=== PATIENT | female | born 1970 | race Caucasian/White ===

== ENCOUNTER → 2019-02-28 | Outpatient (CLI) | payer OTHER ==
[~2019-02-28] MED LIST: AMBIEN CR12.5 MG PO; BACLOFEN 10MG T10 MG PO; CORLANOR5 MG PO; CRESTOR40 MG PO; CYMBALTA60 MG PO; ESTRACE1 MG PO; LYRICA300 MG PO; NORCO 7.5-3251 EACH PO; OMEPRAZOLE40 MG PO; TRAZODONE 150150 M1 PO
--- NOTE | 2019-03-08 09:09 | PAINCON ---
[address] [address] PAIN MANAGEMENT CONSULTATION Name: CAMRON ALMAGUERN Room: [facility] EARL WalterMayra.#: [id number] Admission: 02/28/19 Attend Phys: Maddison Smith MD Discharge: Date of : 72 Report #: [id number] THIS REPORT FOR: //name// CC: Jamie Smith DATE OF SERVICE: 02/28/2019 CHIEF COMPLAINT: Chronic back pain. HISTORY: The patient is a 48-year-old female who has been referred to the pain clinic for evaluation. The patient states that she is having pain that radiates down into her right leg. Occasionally, this involves her left leg. She has had pain and discomfort for a number of years. She has occasional numbness and tingling which radiates down into both legs. She had been followed by a physician in [place] a number of years ago for years. Her insurance has changed, and she would like to be treated at [facility]. The patient has a history of fibromyalgia. Pain is worse when she sits for too long. Prolonged standing as well as pain while lying in bed without making adjustments to her back can be problematic. Notes the pain improves with use of ice and stretching. She describes it as intermittent and sharp. Rates it as a 7/10 at this point. She has undergone epidural steroid injections in the past. She has undergone physical therapy as well as chiropractic treatment in the past. She has not had an MRI. The patient does have a bladder stimulator in place. ALLERGIES: CEPHALEXIN, MOUTH THRUSH; LEVOFLOXACIN, HIVES; PENICILLIN, ORAL THRUSH; AND PINDOLOL. PAST MEDICAL HISTORY: Tachycardia; history of cardiac ablation; fibromyalgia; chronic low back pain, treated with epidurals and opioids; emotional problems; asthma; bladder stimulator. PAST SURGICAL HISTORY: Total knee in 2014, hysterectomy in 2013, left breast biopsy, tonsils and adenoids, and gastric sleeve in 2014. 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 She is working at this juncture. REVIEW OF SYSTEMS: Generally good health, wears glasses, palpitations, shortness of breath, asthma, joint pain, muscle weakness, muscle pain, cramping, back pain, difficulty walking, lightheadedness, dizziness, nervousness, depression, insomnia, and easy bruising. LABORATORY DATA: No new laboratory values [place] [address] PAIN MANAGEMENT CONSULTATION Name: NIKKI ALMAGUER Room: [facility]#: [id number] Admission: 02/28/19 Attend Phys: Maddison Smith MD Discharge: Date of : 72 Report #: [id number] interview. PAIN CLINIC ASSESSMENT AND PQRS: 1. History of osteoarthritis. The patient has had a knee replacement. 2. Height 5 feet 4 inches, weight 244 pounds, and BMI 41.1. 3. Vital signs: Blood pressure 149/81, heart rate 55, respiratory rate 16, and room air saturation is 93%. 4. Temperature 98.1. 5. Pain intensity 10. 6. Fall history: The patient has not fallen in the last 3 months. 7. Blood thinner: The patient is not on a blood thinning medication. 8. Hypertension: The patient is not being treated for hypertension. 9. Opioid therapy greater than 6 weeks. The patient has been receiving opioid medication for chronic pain for a number of years. 10. Risk assessment tool: Mild for opioid use. 11. Functional assessment tool. 12. Recreational drug use. The patient denies. 13. Tobacco: The patient denies. 14. Alcohol: The patient denies frequent use of alcoholic beverages. She does have a family member who is an alcoholic. PHYSICAL EXAMINATION: GENERAL: The patient is a well-developed and well-nourished white female. Appears her stated age. She is alert and oriented x 3. Her affect is appropriate. Speech is fluent. HEENT: Normocephalic and atraumatic. Extraocular eye muscles intact. Sclerae nonicteric. Mucous membranes are moist. NECK: Without adenopathy or JVD. HEART: Regular rate. No problems with tachycardia today. ABDOMEN: Nontender. LUNGS: Clear to auscultation without rhonchi or rales. EXTREMITIES: Upper extremity muscle strength judged to be 5/5 for the major muscle groups in the upper extremity. Deep tendon reflexes are +1 at the biceps bilaterally. Lower extremity: The patient has pain and discomfort in the L5-S1 sciatic outflow tract involving the right leg. RECOMMENDATIONS: We discussed treatment options with the patient. Risks and benefits of an epidural steroid injection have been discussed. At this juncture, the patient would like to continue with her current opioid medications. She is aware that opioid medications can be problematic. She states that she has been taking the medication for a number of years without problems. We discussed the problems with opioids and that they can become less effective over time because of dependence or development of tolerance. Some patients can develop dependence on these medications and show signs of addiction. The patient is not showing signs of addiction. She feels that the medications continue to be helpful. They enable her [place] [address] PAIN MANAGEMENT CONSULTATION Name: NIKKI ALMAGUER Room: [facility]#: [id number] Admission: 02/28/19 Attend Phys: Maddison Smith MD Discharge: Date of : 72 Report #: [id number] We will continue with her current medical regimen of hydrocodone. A script for medication has been provided. She will call us if she has any concerns. We would like to thank you for letting us participate in her care. We hope she continues to improve. She will continue with hydrocodone 7.5 mg 1 p.o. b.i.d. We would like to thank you for letting us participate in her care. We hope she continues to improve. <ELECTRONICALLY SIGNED> By: Maddison Smith MD 03/08/1909 [address] Lazarus Smith MD /nt
== END ==
LOC: M.PC 12:10
DX: M54.5 Low back pain (principal); Z79.899 Other long term (current) drug therapy

== ENCOUNTER → 2019-03-30 | Outpatient (CLI) | payer OTHER ==
--- NOTE | 2019-04-03 19:22 | PAINCON ---
[address] [address] PAIN MANAGEMENT CONSULTATION Name: CAMRON ALMAGUERN Room: [facility] EARL WalterMayra.#: [id number] Admission: 03/30/19 Attend Phys: Maddison Smith MD Discharge: Date of : 72 Report #: [id number] THIS REPORT FOR: //name// CC: Jamie Smith DATE OF SERVICE: 03/30/2019 CHIEF COMPLAINT: Continued low back pain. HISTORY: The patient is a 48-year-old female who has been seen in the Pain Clinic. She has a history of chronic pain involving her low back area. She has had pain that radiates down into her low back area. States that she has had pain in the lumbar area. She also is having pain and discomfort in her foot. She suffers from plantar fasciitis. She also suffers from fibromyalgia. Has had surgery on her right knee. Still has pain and discomfort in the knee area. States that there are some problems behind the patella. She is going to follow up with her orthopedic surgeon in that regard. She finds that Lyrica continues to be helpful with the fibromyalgia. She has pain and rates it as a 7/10 at this juncture. Notes that the weather has changed, it is about 30 degrees outside. Notes that she has noticed worsening of her pain, particularly with walking, sitting, standing, going from a sitting to a standing position. She does try to stretch and finds her medications are beneficial. She notes that the hydrocodone is helpful, but not as helpful as it has been in the past. She returned today for evaluation and treatment. ALLERGIES: CEPHALEXIN -- MOUTH THRUSH, LEVOFLOXACIN - HIVES. PENICILLIN -- ORAL THRUSH. PINDOLOL. PAIN CLINIC ASSESSMENT AND PQRS: 1. History of osteoarthritis. The patient has had a right knee replacement. 2. Height 5 feet 4 inches, weight 244 pounds, BMI is 41. 3. Vital signs: Blood pressure 142/84, heart rate 75, respiratory rate 16, room air saturation 97%. 4. Pain intensity is 7/10. 5. Fall history: The patient has not fallen in the last 3 months. 6. Blood thinner. The patient is not on a blood-thinning medication. 7. Hypertension. The patient is not being treated for hypertension. 8. Opioids greater than 6 weeks. The patient receives her medications from the Pain Clinic at this juncture. 9. Risk assessment tool, low for opioid use. 10. Functional assessment tool, reviewed. 11. Recreational drug use: The patient denies. 12. Tobacco: The patient denies. 13. Alcohol. The patient denies frequent use [place] [address] PAIN MANAGEMENT CONSULTATION Name: CAMRON ALMAGUERN Room: [facility]#: [id number] Admission: 03/30/19 Attend Phys: Maddison Smith MD Discharge: Date of : 72 Report #: [id number] have family members who are alcoholic. PHYSICAL EXAMINATION: GENERAL: The patient is a well-developed, well-nourished white female. Appears her stated age. She is alert and oriented x 3. Her affect is appropriate. Speech is fluent. She is accompanied by her mom. HEENT: Normocephalic, atraumatic. Extraocular eye muscles intact. Sclerae nonicteric. Mucous membranes are moist. NECK: Without adenopathy or JVD. HEART: Regular rate. ABDOMEN: Nontender. Bowel sounds present. LUNGS: Clear to auscultation without rhonchi or rales. EXTREMITIES: Upper extremity muscle strength judged to be 5/5 for the major muscle groups in the upper extremity. The patient has pain and discomfort in the lower portion of her back with pain that radiates down into the lumbar area and buttocks area. She has some discomfort in the area of the right sciatic outflow tract. RECOMMENDATIONS: We discussed treatment options with the patient. We had a discussion regarding the treatment for fibromyalgia. We explained to the patient that fibromyalgia is a very difficult problem. The treatment that has been most efficacious over the years is physical therapy with exercise 3 times a week to about 45 minutes with sweating. The patient has been having some pain and discomfort in her feet because of plantar fasciitis. This too is a very difficult entity to contain. We would recommend that the patient wear shoes, which are supportive. The patient should wear shoes even while at home and not walk barefoot. We will continue with her Lyrica 200 mg 1 p.o. t.i.d. We will also continue with her hydrocodone. A script for her medication has been written. She will continue with hydrocodone 7.5 mg 1 p.o. b.i.d. The patient will call us if she has any concerns. We would like to thank you for letting us participate in her care. She is aware that opioid medications can be problematic. A 70,000 people last year as a result of overdosing. The patient keeps her medications in a guarded area. We would like to thank you for letting us participate in her care. We hope she continues to improve. <ELECTRONICALLY SIGNED> By: Maddison Smith MD 04/03/19 1922 [id number]. MD fernando King
== END ==
LOC: M.PC 05:14
DX: M54.5 Low back pain (principal); Z79.899 Other long term (current) drug therapy; Z88.8 Allergy status to other drugs, medicaments and biological substances

== ENCOUNTER → 2019-04-27 | Outpatient (CLI) | payer OTHER ==
[~2019-04-27] MED LIST changes: +MEDROLDOSEPACK PO
--- NOTE | 2019-05-03 13:30 | PAINCON ---
[facility] [address] [place] [address] PAIN MANAGEMENT CONSULTATION Name: ROSINACAMRONN Room: [facility] BRANDONCarole Livingston.#: [id number] Admission: 04/27/19 Attend Phys: Maddison Smith MD Discharge: Date of : 71 Report #: [id number] THIS REPORT FOR: //name// CC: Jamie Smith DATE OF SERVICE: 04/27/2019 CHIEF COMPLAINT: Low back pain and heel pain. HISTORY: The patient is a 48-year-old female who has been referred to the pain clinic. She does have some problems with right knee pain. She has some pain and discomfort under her kneecap. States that she is going to see her orthopedic doctor in the near future because of this. She has had a knee replacement. The right knee still is somewhat problematic because of irritation under the kneecap area. She also has pain, which is quite problematic that is secondary to plantar fasciitis. She also suffers from fibromyalgia. Feels that her medications are helpful. She is working. Notes that she is on her feet quite a bit. With prolonged standing, she notes worsening of her pain and discomfort. She feels that the hydrocodone 7.5 mg b.i.d. is not significantly covering her pain. She notes that by the end of the day, her pain can be quite problematic. She feels that her pain is about 70% improved on her current medical regimen. Notes that activities such as walking, standing, lifting and bending are problematic. Pain is quite excruciating when she sits and then starts walking. The plantar fasciitis. Appears to be most problematic. It involves both feet, left more so than the right. She has returned today for renewal of her medications. ALLERGIES: CEPHALEXIN -- mouth thrush, LEVOFLOXACIN ? hives, PENICILLIN -- oral thrush, PINDOLOL. PAIN CLINIC AND PQRS: 1. History of osteoarthritis. The patient has had a right knee replacement. 2. Height 5 feet 4 inches, weight 240 pounds, BMI is 41.5. 3. Vital signs: Blood pressure 121/79, heart rate 88, respiratory rate 16, room air saturation 96%, temperature 97.6. 4. Pain intensity 10. 5. Fall history: The patient has not fallen in the last 3 months. 6. Blood thinner. The patient is not on a blood thinning medication. 7. Hypertension. The patient is not being treated for hypertension. 8. Opioids greater than 6 weeks. The patient received medication from one source the pain clinic. 9. Risk assessment tool, low for opioid use. 10. Functional assessment tool. 11. Recreational drug use: The patient denies. 12. Tobacco: [place] [address] PAIN MANAGEMENT CONSULTATION Name: NIKKI ALMAGUER Room: [facility]#: [id number] Admission: 04/27/19 Attend Phys: Maddison Smith MD Discharge: Date of : 71 Report #: [id number] 13. Alcohol. The patient does have some alcoholic family members. PHYSICAL EXAMINATION: GENERAL: The patient is a well-developed, well-nourished white female, somewhat obese. She is alert and oriented x 3. Her affect is appropriate. Speech is fluent. HEENT: Normocephalic, atraumatic. Extraocular eye muscles intact. Sclerae nonicteric. Mucous membranes are moist. NECK: Without adenopathy or JVD. HEART: Regular rate. ABDOMEN: Nontender. Bowel sounds present. LUNGS: Clear to auscultation without rhonchi or rales. EXTREMITIES: Upper extremity muscle strength judged to be 5/5 for the major muscle groups in the upper extremity. MUSCULOSKELETAL: Without significant scoliosis, kyphosis or lordosis. The patient does have some pain and discomfort in the lower portion of her back with pain that radiates down into her buttocks. She has some pain in the area of the right sciatic outflow tract. Also, has pain and discomfort in her left and her right foot. Notes intense pain after sitting and standing and starting to walk. IMPRESSION: 1. History of lumbar radiculopathy. 2. Plantar fasciitis. 3. Right knee pain, status post knee replacement with some scar tissue in the knee area. RECOMMENDATIONS: We discussed treatment options with the patient. Risks and benefits of opioid medications were discussed. The patient is aware that opioid medications can be helpful. She is aware that opioid medications can be problematic in some patients. She has not shown any signs of addiction. The patient can develop tolerance with long-term use of opioid medications. The patient does have some pain and discomfort in the area of her right and left heel. These findings are consistent with plantar fasciitis. Possibility of an injection in the future has been discussed. We have explained that plantar fasciitis can be a very difficult in the T2 relief. We would recommend that she stop by the [facility] for possibility of orthotics to help with the pain. A script for her medications of hydrocodone 7.5 mg 1 p.o. b.i.d. have been written. The patient will also continue with baclofen 10 mg 1 p.o. as needed for spasms. She will continue with Cymbalta 120 mg 1 p.o. daily. The patient will return to the Pain Clinic. She will call us if she has any concerns. The patient states that she has used what sounds like the Voltaren gel, placing that on her knee. She may try it in the area of the heel and note its efficacy. We would like to thank you for letting us participate in her care. We hope she continues to improve. [place] [address] PAIN MANAGEMENT CONSULTATION Name: CAMRON ALMAGUERN Room: [facility]#: [id number] Admission: 04/27/19 Attend Phys: Maddison Smith MD Discharge: Date of : 72 Report #: [id number] anti-inflammatory medications like meloxicam if she has not tried that in the past. <ELECTRONICALLY SIGNED> By: Maddison Smith MD 05/03/19 1330 [id number]. Lazarus Smith MD /nt
== END ==
LOC: M.PC 05:26
DX: M54.16 Radiculopathy, lumbar region (principal); M72.2 Plantar fascial fibromatosis; M25.561 Pain in right knee

== ENCOUNTER 2019-05-20 18:50 | Observation (INO) | payer OTHER ==
[~2019-05-20] VITALS: Ht 162.6 cm; Wt 105.1 kg
[2019-05-20 19:03] VITALS: BP 157/88
[2019-05-20 19:49] LABS: ABSOLUTE BASOPHILS 0.1 thou/uL (0.0-0.2); ABSOLUTE EOSINOPHILS 0.1 thou/uL (0.0-0.7); ABSOLUTE LYMPHOCYTES 1.5 thou/uL (0.8-5.3); ABSOLUTE MONOCYTES 0.6 thou/uL (0.0-1.2); ABSOLUTE NEUTROPHILS 8.8 thou/uL (1.6-8.1); BASOPHILS 0.6 %; EOSINOPHILS 0.8 %; HEMATOCRIT 41.3 % (37.0-47.0); LYMPHOCYTES 13.5 %; MCHC 33.8 g/dL (28.0-37.0); MCV 80.1 fL (80.0-100.0); MONOCYTES 5.5 %; MPV 7.5 fl. (7.2-11.1); NUCLEATED RBCS 0 /100WBC; PLATELET COUNT* 324 thou/uL (150-400); POLYS 79.6 %; RBC 5.16 mil/uL (4.20-5.00); RDW-CV 14.6 % (10.5-14.5); WBC 11.1 thou/uL (4.0-11.0)
[2019-05-20 19:57] LABS: CALCIUM 8.2 mg/dL (8.5-10.1); CREATININE 1.1 mg/dL (0.6-1.3); POTASSIUM 3.5 mmol/L (3.5-5.1)
[2019-05-20 19:59] LABS: APTT 24.3 Seconds (25.0-31.3); PROTIME 10.7 Seconds (9.20-11.50)
[2019-05-20 20:04] LABS: URINE BLOOD NEGATIVE (Negative); URINE CLARITY CLEAR; URINE COLOR YELLOW; URINE GLUCOSE-RANDOM NEGATIVE (Negative); URINE KETONES NEGATIVE (Negative); URINE LEUKOCYTES-REFLEX NEGATIVE (Negative); URINE NITRITE-REFLEX NEGATIVE (Negative); URINE PROTEIN NEGATIVE (Negative); URINE SPECIFIC GRAVITY >= 1.030 (1.005-1.030); URINE UROBILINOGEN 0.2 E.U./dl (0.2-1.0)
[2019-05-20 20:07] LABS: MAGNESIUM 2.1 mg/dL (1.8-2.4); TOTAL BILIRUBIN 0.3 mg/dL (<0.1-1.0); TOTAL PROTEIN 7.4 g/dL (6.4-8.2)
[2019-05-20 20:10] LABS: ICTOTEST (BILI CONFIRMATORY) Negative (Negative); URINE BILIRUBIN 1+ (Negative)
[2019-05-20 21:56] VITALS: BP 134/56
[2019-05-20 22:30] VITALS: BP 137/88
[2019-05-21] VITALS (7 sets, daily range): BP systolic 115–134; BP diastolic 54–87
--- NOTE | 2019-05-21 05:23 | NUR ---
RECIEVED PT FROM ED AT APPROX 2230. PT IS AWAKE AND ORIENTED X4. VSS ON ROOM AIR. ADMISSION ASSESSMENT DONE AND CHARTED. PT C/O NECK AND RT SHOULDER PAIN PARTIALLY RELIEVED BY PAIN MEDS GIVEN BY EMAR. PT IS ORIENTED ON ROOM SET UP AND ON THE USE OF CALL LIGHT. HIGH FALL PRECAUTIONS IN PLACE. CALL LIGHT WITHIN REACH. HOURLY ROUNDING DONE FOR PT SAFETY.
--- NOTE | 2019-05-21 19:53 | NUR ---
PT VSS, A&OX4, SB ON TELE, SBA, HOURLY ROUNDING PERFORMED, CALL LIGHT AND POSSESSIONS WITHIN REACH. REC DISCHARGE ORDERS, REVIEWED WITH PATIENT, NO SCRIPTS GIVEN, PATIENT WALKED WITH NURSING STAFF TO FRONT DOOR AND LEFT WITH FAMILY MEMBER BY CAR.
--- NOTE | 2019-05-22 15:09 | EKG ---
[place] [address] ELECTROCARDIOGRAM REPORT Name: NIKKI ALMAGUER Room: [address] M.R.#: [id number] Admission: 05/20/19 Attend Phys: Kali Wynne MD Discharge: 05/21/19 Date of : 72 Report #: [id number] THIS REPORT FOR: //name// [facility] ED Test Date: 2019-05-20 Test Time: 19:43:35 Pat Name: NIKKI ALMAGUER Department: Room: [facility] Gender: F Log Data Technician: [place] : 1970 Requested By: Jaclyn Hamilton Order Number: [id number] MD: Ubaldo Richardson Measurements Intervals [place] Rate: 60 P: 57 MS: 147 QRS: 15 QRSD: 96 T: 25 QT: 424 QTc: 424 Interpretive Statements Sinus rhythm No previous ECG available for comparison Electronically Signed On 05-22-2019 15:08:37 TAX ACCOUNTANT by Ubaldo Richardson [email or web address] <ELECTRONICALLY SIGNED> By: Ubaldo Richardson MD, [facility] 05/22/19 1508 1943 42 Ubaldo Richardson MD, FACC /EPI
--- NOTE | 2019-05-22 17:16 | CON ---
[address] [address] CONSULTATION Name: ROSINANIKKI M Room: [address] Juwan Salas#: [id number] Admission: 05/20/19 Attend Phys: Kali Wynne MD Discharge: 05/21/19 Date of : 72 Report #: [id number] THIS REPORT FOR: //name// CC: Jamie Wynne DATE OF SERVICE: 05/21/2019 CARDIOLOGY CONSULTATION HISTORY OF PRESENT ILLNESS: The patient is a 48-year-old single white female, who I was asked to see in the hospital after a syncopal spell. The patient has a history of obesity and had previous gastric bypass surgery performed. She is not very active at this time. She was told in the past that she had inappropriate sinus tachycardia. She apparently underwent ablation at in the past. Recently, she has been followed in [facility] and was placed on Corlanor. Because of increased heart rate, she saw my partner, Dr. Garcia recently because of insurance purposes. He ordered a stress test and echocardiogram. She denies a history of chest pain, shortness of breath. She has noticed increased heart rate. She was in the shower yesterday afternoon when she had a syncopal spell. She denied any seizure activity. There are no palpitations noted. No chest tightness. No seizure activity. She came to the hospital last night and was admitted. I was asked to see her for further evaluation and treatment. PAST MEDICAL HISTORY: She has had previous knee surgery, hysterectomy, tonsillectomy and hypertension. MEDICATIONS: On admission includes the following: She has trazodone, omeprazole, Cymbalta, Lyrica, Corlanor, Crestor, esterase, and baclofen. ALLERGIES: SHE HAS AN ALLERGY TO PENICILLIN AND KEFLEX. FAMILY HISTORY: Positive for heart disease. SOCIAL HISTORY: She is from her , lives in [place]. No smoking or alcohol abuse. REVIEW OF SYSTEMS: She has had no history of stroke. 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 She has sleep apnea, uses CPAP. No history of liver disease, kidney disease or cancer. She has depression, saw a psychiatrist in the past. No chronic skin condition. PHYSICAL EXAMINATION: Revealed a middle-aged female lying in bed. She [place] [address] CONSULTATION Name: NIKKI ALMAGUER [address] [id number] Admission: 05/20/19 Attend Phys: Kali Wynne MD Discharge: 05/21/19 Date of : 72 Report #: [id number] LABORATORY AND DIAGNOSTIC DATA: Her x-rays in the Emergency Room last night: She had a portable chest x-ray that showed normal heart size, clear lung chilel. CT scan of the head performed without contrast that showed no acute abnormalities. Her lab work: Sodium 138, creatinine 1.1. Liver function studies were normal. White blood cell count 11.1, hemoglobin 14.0. I did review the results of the echocardiogram that is done earlier this week that showed ejection fraction 60%, no significant valvular abnormality. She underwent a Lexiscan Cardiolite stress test that showed ejection fraction 75% with no evidence of ischemia. IMPRESSION AND RECOMMENDATIONS: 1. Syncope. Suspect vasovagal. The patient was in sinus rhythm last night. Her ECG on admission showed a sinus rhythm with no ST or T-wave changes. Suspect vasovagal. 2. History of inappropriate sinus tachycardia. The patient had previous ablation. 3. Previous gastric bypass for obesity. 4. History of hypertension. The patient is on no medications at this time. 5. Hyperlipidemia. The patient is on a statin drug. 6. History of depression. The patient is on several medications at this time. <ELECTRONICALLY SIGNED> By: Ubaldo Richardson MD, [facility] 05/22/19 1716 1155 [id number] Richardson MD, FACC /nt
== END 2019-05-21 14:34 | disposition home or self-care (01) ==
LOC: M.ERS 18:50 → M.2W 20:53 → M.TBA-ER 20:53 → M.2W 22:18
PROVIDERS: Physician Assistant; ADMIT Internal Medicine
DX: R55 Syncope and collapse (principal); I95.2 Hypotension due to drugs; R00.0 Tachycardia, unspecified; K21.9 Gastro-esophageal reflux disease without esophagitis; G89.29 Other chronic pain; M79.7 Fibromyalgia; M19.90 Unspecified osteoarthritis, unspecified site; F32.9 Major depressive disorder, single episode, unspecified; S40.011A Contusion of right shoulder, initial encounter; X58.XXXA Exposure to other specified factors, initial encounter; Y93.89 Activity, other specified; Y92.89 Other specified places as the place of occurrence of the external cause; Y99.8 Other external cause status

== ENCOUNTER → 2019-05-25 | Outpatient (CLI) | payer OTHER ==
--- NOTE | ~2019-05-25 | PAINCON ---
[facility] [address] [place] [address] PAIN MANAGEMENT CONSULTATION Name: NIKKI ALMAGUER Room: [facility].#: [id number] Admission: 05/25/19 Attend Phys: Maddison Smith MD Discharge: Date of : 72 Report #: [id number] THIS REPORT FOR: //name// CC: Jamie Smith DATE OF SERVICE: 05/25/2019 PRIMARY CARE PHYSICIAN: Jamie Loza MD CHIEF COMPLAINT: "I fell." HISTORY: The patient is a 49-year-old female who has a history of low back pain. She states that she had been treated for hypertension. She was given an antihypertensive medication. States that she got in the shower. She noticed that she started to feel a little differently. She then woke with cold water running on her in the shower. She did not go to the Emergency Room. She stopped taking the antihypertensive medication. She has not had problems since that. She does have a problem with her right knee. She has been told that she has some irritation under her kneecap. She also suffers from plantar fasciitis. She suffers from fibromyalgia. She has used hydrocodone 7.5 mg 1 p.o. b.i.d. to help control her pain. She has been using baclofen as a muscle relaxant rarely. Notes that since the cold weather is present, increased discomfort with walking, standing and with other activities. She has returned today for renewal of her medications. ALLERGIES: CEPHALEXIN ? MOUTH THRUSH, LEVOFLOXACIN CAUSE HIVES, PENICILLIN ? ORAL THRUSH, PINDOLOL. CURRENT MEDICATIONS: Hydrocodone 7.5 mg 1 p.o. b.i.d., baclofen 10 mg p.r.n., Cymbalta 60 mg daily, Lyrica 300 mg t.i.d. PAIN CLINIC ASSESSMENT AND PQRS: 1. The patient has pain and discomfort in her right knee and has had a right knee replacement. She is not being treated for rheumatoid arthritis. 2. Height 5 feet 4 inches, weight 238 pounds, BMI is 41. 3. Vital Signs: Blood pressure 133/80, heart rate 78, respiratory rate 16, room air saturation is 95%, temperature is 97.2. 4. Fall history: The patient did fall while taking a shower. Told that she has had orthostatic hypotension. 5. Blood thinner: The patient is not on a blood thinning medication. 6. Hypertension: The patient is not on an antihypertensive medication at this juncture. 7. Opioids greater than 6 weeks. The [facility] [place] [address] PAIN MANAGEMENT CONSULTATION Name: NIKKI ALMAGUER Room: [facility]#: [id number] Admission: 05/25/19 Attend Phys: Maddison Smith MD Discharge: Date of : 72 Report #: [id number] 8. Risk assessment tool, low for opioid use. 9. Functional assessment tool. 10. Recreational drug use: The patient denies. 11. Tobacco: The patient denies. 12. Alcohol: The patient denies frequent use of alcoholic beverages. PHYSICAL EXAMINATION: GENERAL: The patient is a well-developed, well-nourished white female. Appears her stated age. She is slightly obese. She is alert and oriented x 3. Her affect is appropriate. Speech is fluent. HEENT: Normocephalic, atraumatic. Extraocular eye muscles intact. Sclerae nonicteric. Mucous membranes are moist. NECK: Without adenopathy or JVD. HEART: Regular rate. MUSCULOSKELETAL: Without significant scoliosis, kyphosis or lordosis. The patient has pain and discomfort in lower portion of her back with pain that radiates down into her buttocks. Has pain and soreness in the area of the right sciatic outflow tract. Has noted some discomfort in the left foot and right foot. Can experience increased pain going from a sitting to a standing position because of plantar fasciitis. IMPRESSION: 1. History of lumbar radiculopathy. 2. Plantar fasciitis. 3. Right knee pain, status post knee replacement with scar tissue in the knee area. RECOMMENDATIONS: We discussed treatment options with the patient. At this point, we will continue with her medications. Risks and benefits of opioid medications have been discussed. The patient has tried other medications. She feels that they have not been as effective. She continues to work on a regular basis. She is able to think clearly without her medications clouding her sensorium. She would like to continue with the hydrocodone 7.5 mg 1 p.o. t.i.d. The patient will also continue with baclofen 10 mg 1 p.o. p.r.n. The patient will continue with Lyrica 300 mg 1 p.o. t.i.d. She will also continue with the Cymbalta. The patient is taking the medication as prescribed. She has not shown any signs of addiction. She will call us if she has any questions. We would like to thank you for letting us participate in her care. By: [id number]. Lazarus Smith MD /nt
== END ==
LOC: M.PC 04:06
DX: M72.2 Plantar fascial fibromatosis (principal); Z96.651 Presence of right artificial knee joint; Z79.891 Long term (current) use of opiate analgesic; Z79.899 Other long term (current) drug therapy

== ENCOUNTER → 2019-06-22 | Outpatient (CLI) | payer OTHER ==
--- NOTE | 2019-06-27 08:37 | PAINCON ---
[address] [address] PAIN MANAGEMENT CONSULTATION Name: NIKKI ALMAGUER Room: [facility]#: [id number] Admission: 06/22/19 Attend Phys: Maddison Smith MD Discharge: Date of : 72 Report #: [id number] THIS REPORT FOR: //name// cc: Jamie Loza MD, Dean L. MD ~ THIS REPORT FOR: //name// CC: Jamie Smith DATE OF SERVICE: 06/22/2019 CHIEF COMPLAINT: Continued low back pain. HISTORY: The patient is a 49-year-old female who has been seen in the pain clinic because of chronic low back pain. She has pain that radiates down into her left foot. Pain has been somewhat problematic for a number of years. She is being treated for hypertension. She has stopped taking the hypertensive medications having less complaints. She suffers from chronic pain in her foot from plantar fasciitis. She also suffers from fibromyalgia. She has experienced lumbar radiculopathy. She has returned today for renewal of her medications. Rates the pain in her foot as 10/10. Back pain is 6/10. ALLERGIES: CEPHALEXIN causes mouth thrush, LEVOFLOXACIN causes hives, PENICILLIN causes oral thrush, PINDOLOL. CURRENT MEDICATIONS: Hydrocodone 7.5 mg 1 p.o. b.i.d., baclofen 10 mg, Cymbalta 60 mg, Lyrica 300 mg t.i.d. PAIN CLINIC ASSESSMENT AND PQRS: 1. The patient has some discomfort in her right knee and has had a right knee replacement. She is not being treated for rheumatoid arthritis. 2. Height 5 feet 4 inches, weight 248 pounds, BMI is 43. 3. Blood pressure 144/78, heart rate is 80, respiratory rate 16, room air saturation is 95%, temperature 97.8. 4. Pain intensity, left foot 02/23. Back pain, 10/24. 5. Fall history: The patient has not fallen since we saw her last. 6. Blood thinner. The patient is not on a blood thinning medication. 7. Hypertension. The patient is not being treated for hypertension. 9. Opioids greater than 6 weeks. The [facility]. 10. Risk assessment tool, low for opioid use. 11. Functional assessment tool. 12. Recreational drug use: The patient denies. 13. Tobacco: The patient denies. 14. Alcohol: The patient denies [place] [address] PAIN MANAGEMENT CONSULTATION Name: CAMRON ALMAGUERN Saba Room: [facility]#: [id number] Admission: 06/22/19 Attend Phys: Maddison Smith MD Discharge: Date of : 72 Report #: [id number] PHYSICAL EXAMINATION: GENERAL: The patient is a well-developed, well-nourished white female. Appears her stated age. She is alert and oriented x 3. She is somewhat tired. She does work at night. She has returned this morning to have her medications renewed. HEENT: Normocephalic, atraumatic. Extraocular eye muscles intact. Sclerae nonicteric. Mucous membranes are moist. NECK: Without adenopathy or JVD. HEART: Regular rate. ABDOMEN: Nontender. MUSCULOSKELETAL: Without significant scoliosis, kyphosis or lordosis. The patient has pain and discomfort in the lower portion of her back and pain radiating down into her buttocks. She also has pain in the area of the right sciatic outflow tract. Has discomfort in the left foot and the right foot has pain, which is consistent with plantar fasciitis. IMPRESSION: 1. History of lumbar radiculopathy. 2. Plantar fasciitis. 3. Right knee pain, status post knee replacement with scar tissue in the knee area. RECOMMENDATIONS: We discussed treatment options with the patient. At this juncture, we will continue with her medications. A script for baclofen 10 mg 1 p.o. t.i.d. will be continued. She will also continue with Cymbalta 60 mg daily. She is being weaned off this medication. She finds that the [place] 7.5 mg 1 p.o. t.i.d. is helpful. She is able to stay gainfully employed as a result. Notes that her pain is worse when she is walking, sitting and standing for prolonged periods of time. Notes that the pain in her foot becomes extremely uncomfortable after resting because of the plantar fasciitis. She has been provided a script for hydrocodone 7.5 mg 1 p.o. t.i.d. She will also be given a script for baclofen 10 mg 1 p.o. t.i.d. She is aware that the opioid medications can become less effective as time goes on secondary to development of tolerance. The patient does not show any signs of addiction. She has taken the medication as prescribed. She will call us if she has any concerns. We would like to thank you for letting us participate in her care. We hope she continues to improve. <ELECTRONICALLY SIGNED> By: Maddison Smith MD 06/27/19 0837 [id number]. MD YG King
== END ==
LOC: M.PC 04:30
DX: M72.2 Plantar fascial fibromatosis (principal); M54.16 Radiculopathy, lumbar region; Z79.891 Long term (current) use of opiate analgesic; Z96.651 Presence of right artificial knee joint

== ENCOUNTER → 2019-07-25 | Outpatient (CLI) | payer OTHER ==
[~2019-07-25] MED LIST changes: +ONDANSETRON ODT8 MG PO
--- NOTE | 2019-08-11 09:01 | PAINCON ---
[address] [address] PAIN MANAGEMENT CONSULTATION Name: NIKKI ALMAGUER Room: [facility].#: [id number] Admission: 07/25/19 Attend Phys: Maddison Smith MD Discharge: Date of : 72 Report #: [id number] THIS REPORT FOR: //name// cc: Jamie Loza MD, Dean L. MD ~ THIS REPORT FOR: //name// CC: Jamie Smith DATE OF SERVICE: 07/25/2019 CHIEF COMPLAINT: Low back and left foot pain. HISTORY: The patient is a 49-year-old female, who has been seen in the Pain Clinic because of low back pain and foot pain. She rates her pain today as 10/10. Notes that activities exacerbate the discomfort. The change in weather can be problematic. Walking, sitting, standing are somewhat problematic. She has used code as well as rest to help decrease her discomfort. She has used hydrocodone to help decrease pain and discomfort. The left foot pain is somewhat better and going away. She does work at night. Since she was up all night, her pain is worse at this juncture. She has returned today for renewal of her medication. ALLERGIES: CEPHALEXIN CAUSED THRUSH, LEVOFLOXACIN CAUSED HIVES, PENICILLIN CAUSED ORAL THRUSH, PINDOLOL. CURRENT MEDICATIONS: Hydrocodone 7.5 mg 1 p.o. b.i.d., baclofen 10 mg, Cymbalta 60 mg, Lyrica 300 mg t.i.d. PAIN CLINIC ASSESSMENT AND PQRS: 1. The patient has some discomfort in her right knee. Has had a right knee replacement. She is not being treated for rheumatoid arthritis. 2. Height 5 feet 4 inches, weight 242 pounds, BMI 41. 3. Vital signs: Blood pressure 152/87, heart rate is 77, respiratory rate 16, room air saturation 96%, and temperature 97.8. 4. Pain intensity score 10/10. 5. Fall history: The patient has not fallen in the last month. 6. Blood thinner. The patient is not on a blood-thinning medication. 7. Hypertension. The patient is not being treated for hypertension. 8. Opioids greater than 6 weeks. The patient [facility] medications from [facility]. 9. Risk assessment tool, low for opioid use. 10. Functional assessment tool. 11. Recreational drug use: The patient [place] [address] PAIN MANAGEMENT CONSULTATION Name: NIKKI ALMAGUER Room: [facility]#: [id number] Admission: 07/25/19 Attend Phys: Maddison Smith MD Discharge: Date of : 72 Report #: [id number] 12. Tobacco: The patient denies. 13. Alcohol: The patient denies frequent use of alcoholic beverages. PHYSICAL EXAMINATION: GENERAL: The patient is a well-developed, well-nourished white female. Appears her stated age. She is alert and oriented x 3. Her affect is appropriate. Speech is fluent. HEENT: Normocephalic, atraumatic. Extraocular eye muscles intact. Sclerae nonicteric. Mucous membranes are moist. NECK: Without adenopathy or JVD. HEART: Regular rate. ABDOMEN: Nontender. MUSCULOSKELETAL: The patient without significant scoliosis, kyphosis or lordosis. The patient has pain in the lower portion of her back. Notes the pain radiates down into her buttocks. She has pain on the right side in the right sciatic outflow area. Complains of some pain in her left foot, right foot as well. Has pain consistent with plantar fasciitis. IMPRESSION: 1. Lumbar radicular pain. 2. Plantar fasciitis. 3. Right knee pain, status post knee replacement and scar tissue in the knee area. RECOMMENDATIONS: We discussed treatment options with the patient. At this juncture, we will continue with her medications. The patient does work at night. She is somewhat tired at this juncture because she is just getting off from work. She rates her pain as a 10/10. It can decrease to 6-10. We will continue with her medications. The patient has been provided a script for hydrocodone 7.5 mg 1 p.o. t.i.d. She will call us if she has any concerns. We have explained to the patient and she states that she is aware that opioid medications over time can become less effective due to development of tolerance. She has been given a script for hydrocodone 7.5 mg. She will call us. She will continue to stretch and do activities to help with the plantar fasciitis. Possibility of injection in the future is an option. <ELECTRONICALLY SIGNED> By: Maddison Smith MD 08/11/19 0901 [id number]. Lazarus Smith MD /nt
== END ==
LOC: M.PC 04:44
DX: M54.12 Radiculopathy, cervical region (principal); M72.2 Plantar fascial fibromatosis; M25.561 Pain in right knee; Z79.891 Long term (current) use of opiate analgesic; Z96.651 Presence of right artificial knee joint

== ENCOUNTER → 2019-09-05 | Outpatient (CLI) | payer OTHER ==
[~2019-09-05] MED LIST changes: +HYDROCODONE-AP1 EA11 PO
--- NOTE | 2019-09-05 12:54 | 2DMMODE ---
[place] [address] 2 D/M-MODE ECHOCARDIOGRAM Name: ROSINANIKKI M Room: [facility]#: [id number] Admission: 09/05/19 Attend Phys: Jamie Loza, Discharge: Date of : 72 Date of Service: 09/05/19 1252 Report #: [id number] THIS REPORT FOR: cc: Jamie Loza MD, Dean L. MD Blick,Ubaldo Saleh MD [facility] ~ APPROVED REPORT Study performed: 09/05/2019 10:55:11 EXAM: Comprehensive 2D, Doppler, and color-flow Echocardiogram Patient Location: Out-Patient BSA: 2.11 HR: 80 bpm BP: 128/72 mmHg Other Information Study Quality: Good Indications Dyspnea 2D Dimensions IVSd: 11.29 (7-11mm) LVOT Diam: 20.79 (18-24mm) LVDd: 40.95 mm PWd: 10.12 (7-11mm) Ascending Ao: 25.23 (22-36mm) LVDs: 25.63 (25-40mm) Aortic Root: 24.82 mm Volumes Left Atrial Volume (Systole) LA ESV Index: 16.00 mL/m2 Aortic Valve AoV Peak Jeffy.: 1.39 m/s AO Peak Gr.: 7.77 mmHg LVOT Max P.93 mmHg AO Mean Gr.: 4.29 mmHg LVOT Mean P.62 mmHg LVOT Max V: 0.86 m/s AO V2 VTI: 27.80 cm LVOT Mean V: 0.60 m/s ANA CRISTINA (VTI): 2.26 cm2 LVOT V1 VTI: 18.52 cm Mitral Valve E/A Ratio: 0.96 [place] [address] 2 D/M-MODE ECHOCARDIOGRAM Name: NIKKI ALMAGUER Room: [facility]#: [id number] Admission: 09/05/19 Attend Phys: Jamie Loza, Discharge: Date of : 72 Date of Service: 09/05/19 1252 Report #: [id number] MV Decel. Time: 221.70 ms MV E Max Jeffy.: 0.70 m/s MV PHT: 64.29 ms MVA (PHT): 3.42 cm2 TDI E/Lateral E': 7.78 E/Medial E': 7.78 Medial E' Jeffy.: 0.09 m/s Lateral E' Jeffy.: 0.09 m/s Pulmonary Valve PV Peak Jeffy.: 1.10 m/s PV Peak Gr.: 4.84 mmHg Left Ventricle The left ventricle is normal size. There is normal LV segmental wall motion. There is normal left ventricular wall thickness. Left ventricular systolic function is normal. The left ventricular ejection fraction is within the normal range. LVEF is 55-60%. Grade I - abnormal relaxation pattern. Right Ventricle The right ventricle is normal size. The right ventricular systolic function is normal. Atria The left atrium size is normal. The right atrium size is normal. Aortic Valve The aortic valve is normal in structure. Trace aortic regurgitation. There is no aortic valvular stenosis. Mitral Valve The mitral valve is normal in structure. There is no mitral valve regurgitation noted. No evidence of mitral valve stenosis. Tricuspid Valve The tricuspid valve is normal in structure. There is trace tricuspid valve regurgitation noted. Pulmonic Valve The pulmonary valve is normal in structure. There is no pulmonic valvular regurgitation. Great Vessels The aortic root is normal in size. IVC [place] [address] 2 D/M-MODE ECHOCARDIOGRAM Name: CAMRON ALMAGUERMilo Walter Room: [facility]#: [id number] Admission: 09/05/19 Attend Phys: Jamie Loza, Discharge: Date of : 72 Date of Service: 09/05/19 1252 Report #: [id number] collapses >50% with inspiration. Pericardium There is no pericardial effusion. <Conclusion> LVEF is 55-60%. Trace aortic regurgitation. <ELECTRONICALLY SIGNED> By: Ubaldo Richardson MD, [facility] 09/05/19 1252 1252 125 Ubaldo Richardson MD, [facility] /INF
== END ==
LOC: M.CRD 08-29 11:42
DX: U07.1 COVID-19 (principal); I50.9 Heart failure, unspecified; Z98.890 Other specified postprocedural states

== ENCOUNTER → 2019-09-11 | Outpatient (CLI) | payer OTHER ==
[2019-09-11 14:40] LABS: ABSOLUTE BASOPHILS 0.1 thou/uL (0.0-0.2); ABSOLUTE EOSINOPHILS 0.4 thou/uL (0.0-0.7); ABSOLUTE LYMPHOCYTES 2.7 thou/uL (0.8-5.3); ABSOLUTE MONOCYTES 0.6 thou/uL (0.0-1.2); BASOPHILS 0.8 %; EOSINOPHILS 3.9 %; HEMATOCRIT 40.9 % (37.0-47.0); HEMOGLOBIN 13.8 gm/dL (12.0-15.0); LYMPHOCYTES 27.3 %; MCH 26.9 pg (26.0-34.0); MCHC 33.8 g/dL (28.0-37.0); MCV 79.6 fL (80.0-100.0); MONOCYTES 5.9 %; MPV 7.6 fl. (7.2-11.1); NUCLEATED RBCS 0 /100WBC; PLATELET COUNT* 320 thou/uL (150-400); POLYS 62.1 %; RBC 5.13 mil/uL (4.20-5.00); RDW-CV 15.9 % (10.5-14.5); WBC 9.7 thou/uL (4.0-11.0)
[2019-09-11 14:53] LABS: CALCIUM 9.2 mg/dL (8.5-10.1); CREATININE 0.9 mg/dL (0.6-1.3); POTASSIUM 4.1 mmol/L (3.5-5.1); TOTAL BILIRUBIN 0.2 mg/dL (<0.1-1.0); TOTAL PROTEIN 7.6 g/dL (6.4-8.2)
[2019-09-11 15:44] LABS: ESR (SEDRATE) 27 mm/hr (0-20)
== END ==
LOC: M.LAB 14:04
PROVIDERS: Internal Medicine
DX: E03.9 Hypothyroidism, unspecified (principal); R11.0 Nausea; M79.7 Fibromyalgia

== ENCOUNTER → 2019-09-19 | Outpatient (CLI) | payer OTHER ==
--- NOTE | 2019-09-20 08:03 | PAINCON ---
[address] [address] PAIN MANAGEMENT CONSULTATION Name: CAMRON ALMAGUERN Saba Room: [facility].#: [id number] Admission: 09/19/19 Attend Phys: Maddison Smith MD Discharge: Date of : 72 Report #: [id number] THIS REPORT FOR: //name// cc: Jamie Loza MD, Dean L. MD ~ THIS REPORT FOR: //name// CC: Jamie Smith DATE OF SERVICE: 09/19/2019 CHIEF COMPLAINT: "I had the COVID-19 infection and I am better." HISTORY: The patient is a 49-year-old female who has been followed in the pain clinic because of chronic back pain and foot pain. She returns today indicating that she has had an episode of COVID-19. She has been off work for the past 2 months. She noticed the onset of it on a . She started to feel somewhat sick. By Wednesday, she had a full fledged attack with severe muscle soreness and aches. She does live with her mother. She was febrile to 103. She asked her mother to live with another family member. She has noticed an improvement. She is scheduled to return to work on tomorrow. She still has some plantar fasciitis discomfort. She feels overall that things are better. She feels that the use of hydrocodone, baclofen and Cymbalta continue to be beneficial. ALLERGIES: CEPHALEXIN CAUSES THRUSH, LEVOFLOXACIN CAUSES HIVES, PENICILLIN CAUSES ORAL THRUSH, AND PINDOLOL. CURRENT MEDICATIONS: Hydrocodone 7.5 mg b.i.d., baclofen 10 mg, Cymbalta 60 mg, Lyrica 300 mg t.i.d. PAIN CLINIC ASSESSMENT AND PQRS: 1. The patient has some discomfort in her right knee. She also has had right knee replacement. She is not being treated for rheumatoid arthritis. 2. Height 5 feet 4 inches, weight 243 pounds, BMI is 41.9. 3. Vital signs: Blood pressure is 150/85, heart rate 76, respiratory rate 16, room air saturation 94%, temperature 98.7. 4. Pain intensity score 5/10. 5. Fall history: The patient has not fallen in the last 3 months. 6. Blood thinner. The patient is not on a blood thinning medication. 7. Hypertension. The patient is not being treated for hypertension. 8. Opioids greater than 6 weeks. The [facility]. 9. Risk assessment tool, low for opioid use. 10. Functional assessment [place] [address] PAIN MANAGEMENT CONSULTATION Name: NIKKI ALMAGUER Room: [facility]#: [id number] Admission: 09/19/19 Attend Phys: Maddison Smith MD Discharge: Date of : 72 Report #: [id number] 11. Recreational drug use. The patient denies. 12. Tobacco: The patient denies. 13. Alcohol. The patient denies frequent use of alcoholic beverages. PHYSICAL EXAMINATION: GENERAL: The patient is a well-developed, well-nourished white female. She appears her stated age. She is alert and oriented x 3. Her affect is appropriate. Speech is fluent. The patient is wearing a mask. HEENT: Normocephalic, atraumatic. Extraocular eye muscles intact. Sclerae nonicteric. NECK: Without adenopathy or JVD. HEART: Regular rate. The patient states that her breathing is reasonably good. ABDOMEN: Nontender. EXTREMITIES: Upper extremity muscle strength judged to be 5/5 for the major muscle groups in the upper extremity. The patient without significant scoliosis, kyphosis, or lordosis. She does note some pain and discomfort in her buttocks and pain down the right side of her sciatic outflow area. She continues to have left foot pain and right foot pain, which are consistent with plantar fasciitis. IMPRESSION: 1. Lumbar radicular pain. 2. Status post COVID-19 infection. 3. 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 RECOMMENDATIONS: We will continue with the patient's medications. A script for her medications of hydrocodone 7.5 mg 1 p.o. t.i.d. has been provided. The patient will also continue with Zofran 8 mg 1 p.o. t.i.d. The patient finds that baclofen is helpful, we will continue with this p.r.n. The patient will also continue with Cymbalta 120 mg daily. She feels overall that things are going well. She is happy to have survived the COVID-19 infection, she states she had a temperature of 103.3, had severe muscle aches, has experienced severe shortness of breath. She feels that she is now beginning to have less respiratory problems and feels that she can now return to work. She is going to be tested for antibodies per her primary. <ELECTRONICALLY SIGNED> By: Maddison Smith MD 09/20/19 0803 [id number]. Lazarus Smith MD /nt
== END ==
LOC: M.PC 03:04
DX: M54.5 Low back pain (principal); M79.673 Pain in unspecified foot; M25.561 Pain in right knee; Z96.651 Presence of right artificial knee joint; Z88.1 Allergy status to other antibiotic agents; Z88.5 Allergy status to narcotic agent; Z88.3 Allergy status to other anti-infective agents; Z88.0 Allergy status to penicillin; Z88.8 Allergy status to other drugs, medicaments and biological substances; Z79.811 Long term (current) use of aromatase inhibitors; Z79.899 Other long term (current) drug therapy

== ENCOUNTER → 2019-09-22 | Outpatient (CLI) | payer OTHER | LOC: M.LAB 05:52 | DX: U07.1 COVID-19 (principal); J98.8 Other specified respiratory disorders; Z88.1 Allergy status to other antibiotic agents; Z88.0 Allergy status to penicillin; Z88.8 Allergy status to other drugs, medicaments and biological substances ==

== ENCOUNTER → 2019-10-17 | Outpatient (CLI) | payer OTHER ==
--- NOTE | 2019-11-01 08:41 | PAINCON ---
[address] [address] PAIN MANAGEMENT CONSULTATION Name: NIKKI ALMAGUER Room: [facility].#: [id number] Admission: 10/17/19 Attend Phys: Maddison Smith MD Discharge: Date of : 72 Report #: [id number] THIS REPORT FOR: //name// cc: Jamie Loza MD, Dean L. MD ~ THIS REPORT FOR: //name// CC: Jamie Smith DATE OF SERVICE: 10/17/2019 PRIMARY CARE PHYSICIAN: Jamie Loza MD CHIEF COMPLAINT: Low back pain, left foot pain and fibromyalgia. HISTORY: The patient is a 49-year-old female who has returned to the pain clinic for medications. She has suffered COVID-19. 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 She is still having a significant amount of pain in her foot. 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 She has had pain in the heel of her foot. It is quite problematic when she gets up and walks. She feels that it is quite painful. She has been told that she has plantar fasciitis. She would like to consider an injection in the future should the pain continue to be problematic. She notes that her medications can be quite beneficial. Walking, sitting, standing, climbing stairs, bending and lifting are problematic. She feels her medications helpful. She has tried cold as well as rest. She has received up to 100% improvement with her past medical regimen. ALLERGIES: CEPHALEXIN CAUSE THRUSH, LEVOFLOXACIN CAUSE HIVES, PENICILLIN CAUSES AN ORAL THRUSH, PINDOLOL. CURRENT MEDICATIONS: Hydrocodone 7.5 mg 1 p.o. t.i.d., baclofen 10 mg p.r.n., Cymbalta 120 mg daily. PAIN CLINIC ASSESSMENT AND PQRS: 1. The patient has some discomfort in her right knee. Also, has had pain in the right knee, which has been replaced. She is not being treated for rheumatoid arthritis. Has plantar fasciitis in her feet. 2. Height 5 feet 4 inches, weight 250 pounds, BMI is 42.9. 3. Vital signs: Blood pressure 117/69, heart rate 83, respiratory rate 16, room air saturation 94%, temperature 98.0. 4. Pain intensity 5/10. 5. Fall history: The patient has not fallen in the last 3 months. 6. Blood thinner. The patient is not on a blood thinning medication. 7. Hypertension. The patient is not being treated for hypertension. 8. Opioids greater than 6 weeks. The patient received [place] [address] PAIN MANAGEMENT CONSULTATION Name: NIKKI ALMAGUER Room: [facility]#: [id number] Admission: 10/17/19 Attend Phys: Maddison Smith MD Discharge: Date of : 72 Report #: [id number] clinic. 9. Risk assessment tool, low for opioid use. Functional assessment tool reviewed. 10. Recreational drug use. The patient denies. 11. Tobacco: The patient denies. 12. Alcohol. The patient denies frequent use of alcoholic beverages. PHYSICAL EXAMINATION: GENERAL: The patient is a well-developed, well-nourished white female. Appears her stated age. She is alert and oriented x 3. Her affect is appropriate. Speech is fluent. HEENT: Normocephalic, atraumatic. Extraocular eye muscles intact. The patient is wearing a mask. NECK: Without adenopathy or JVD. Breathing relatively well. ABDOMEN: Nontender. EXTREMITIES: Upper extremity muscle strength judged to be 5/5 for the major muscle groups of the upper extremity. MUSCULOSKELETAL: The patient is without significant scoliosis, kyphosis or lordosis. Has pain in her buttocks and pain radiating down to the right side of her sciatic outflow tract. The patient has left foot pain with intense pain in the area of the heel. Pain is consistent with plantar fasciitis. IMPRESSION: 1. Lumbar radicular pain. 2. Status post COVID-19 infection. 3. 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 4. Left and right foot pain consistent with plantar fasciitis. RECOMMENDATIONS: We discussed treatment options with the patient. At this juncture, we will continue with her medications. A script for her medications of hydrocodone have been rewritten. She will also continue with Medrol Dosepak to take in the next week. A script for Zofran has been provided as well. The patient will call us if she has any concerns. We would like to thank you for letting us participate in her care. We hope she continues to improve. <ELECTRONICALLY SIGNED> By: Maddison Smith MD 11/01/19 0841 [id number]. Lazarus mSith MD /[facility]
== END ==
LOC: M.PC 04:55
PROVIDERS: ATTEND Anesthesiology Pain Medicine
DX: M54.5 Low back pain (principal); M79.7 Fibromyalgia; M79.672 Pain in left foot; Z96.651 Presence of right artificial knee joint; F11.20 Opioid dependence, uncomplicated; Z88.8 Allergy status to other drugs, medicaments and biological substances; Z79.899 Other long term (current) drug therapy

== ENCOUNTER → 2019-11-09 | Outpatient (CLI) | payer OTHER ==
--- NOTE | ~2019-11-09 | PAINCON ---
[address] [address] PAIN MANAGEMENT CONSULTATION Name: NIKKI ALMAGUER Room: [facility].#: [id number] Admission: 11/09/19 Attend Phys: Maddison Smith MD Discharge: Date of : 72 Report #: [id number] THIS REPORT FOR: //name// cc: Jamie Loza MD, Dean L. MD ~ THIS REPORT FOR: //name// CC: Jamie Smith DATE OF SERVICE: 11/09/2019 CHIEF COMPLAINT: "I am going on vacation. I would like to have my medications renewed and I am still having the pain in my foot." HISTORY: The patient is a 49-year-old female who has been followed in the Pain Clinic. As you may recall, she is recovering from COVID-19. 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 She has pain in her left foot, which is quite problematic. She has a history of pain consistent with plantar fasciitis. She is going on vacation. She would like to have an injection in the painful area today. She also would like to have her medications. She is not having any complication from her current medical regimen. ALLERGIES: CEPHALEXIN CAUSES THRUSH, LEVOFLOXACIN CAUSED HIVES, PENICILLIN CAUSED ORAL THRUSH, PINDOLOL. CURRENT MEDICATIONS: Hydrocodone 7.5 mg 1 p.o. t.i.d., baclofen 10 mg p.r.n., and Cymbalta 120 mg daily. PAIN CLINIC ASSESSMENT AND PQRS: 1. The patient has some discomfort in her right knee. She has had pain in the right knee and it has been replaced. She is not being treated for rheumatoid arthritis. She has plantar fasciitis in her feet. 2. Height 5 feet 4 inches, weight 250 pounds, BMI is 42.9. 3. Vital signs: Blood pressure 117/69, heart rate 83, respiratory rate 18, room air saturation is 91%, and temperature 96.4. 4. Pain intensity 10 for the left foot, 4 for the back area. 5. Fall history: The patient has not fallen in the last 3 months. 6. Blood thinner. The patient is not on a blood thinning medication. 7. Hypertension. The patient is not being treated for hypertension. 8. Opioids greater than 6 weeks. The patient receives medication from the Pain Clinic. 9. Risk assessment tool, low for opioid use. 10. Functional assessment tool reviewed. 11. Recreational drug use. The patient denies. 12. Tobacco: [place] [address] PAIN MANAGEMENT CONSULTATION Name: NIKKI ALMAGUER Room: [facility]#: [id number] Admission: 11/09/19 Attend Phys: Maddison Smith MD Discharge: Date of : 72 Report #: [id number] 13. Alcohol: The patient denies frequent use of alcoholic beverages. PHYSICAL EXAMINATION: GENERAL: The patient is a well-developed, well-nourished, somewhat obese white female, appears her stated age. She is alert and oriented x 3. Her affect is appropriate. Speech is fluent. HEENT: Normocephalic, atraumatic. Extraocular eye muscles intact. The patient is wearing a mask. NECK: Without adenopathy or JVD. ABDOMEN: Nontender. MUSCULOSKELETAL: Upper extremity muscle strength judged to be 5/5 for the major muscle groups in the upper extremity. The patient without significant scoliosis, kyphosis or lordosis. Does complain of pain in her buttocks and has pain that radiates sometimes down to the right sciatic outflow tract. The patient has left foot pain, which is intense in the area of the heel consistent with plantar fasciitis. IMPRESSION: 1. Lumbar radicular pain. 2. Plantar fasciitis. 3. Status post COVID-19 infection, improving. 4. The right knee pain, status post replacement with scar tissue in the area. 5. Left and right foot pain consistent with plantar fasciitis. RECOMMENDATIONS: We discussed the treatment options with the patient. Risks and benefits of an injection with local anesthetic and steroid into the area of the plantar fascia of the left foot was discussed. Possible complications of the procedure, which could be infection, worsening pain, no improvement in pain, tendon complications with rupture. The patient elects to proceed. PROCEDURE NOTE: The patient was taken to the procedure area. She was then placed in the supine position. Her left foot was sterilely prepped with a chlorhexidine solution and allowed to dry. A cold spray using ethyl chloride was used to anesthetize the area. A 25-gauge needle was then advanced into the area 1 inch from the back of her heel and approximately 3/4 of an inch from the sole of her foot. A solution of 3 mL of 0.5% bupivacaine and 40 mg triamcinolone was injected. The patient tolerated the procedure well. There were no complications. She remained in the Pain Clinic for an appropriate amount of time. There were no complications. She has been provided a script for her medications. She is considering going out of town. We will have [place] [address] PAIN MANAGEMENT CONSULTATION Name: ROSINANIKKI Walter Room: [facility]#: [id number] Admission: 11/09/19 Attend Phys: Maddison Smith MD Discharge: Date of : 72 Report #: [id number] We would like to thank you for letting us participate in her care. We hope she continues to improve. By: [id number]. Lazarus Smith MD /nt
== END | disposition home or self-care (01) ==
LOC: M.PC 04:53
PROVIDERS: ATTEND Anesthesiology Pain Medicine
DX: M72.2 Plantar fascial fibromatosis (principal); M79.672 Pain in left foot; M54.16 Radiculopathy, lumbar region; Z96.651 Presence of right artificial knee joint; Z79.899 Other long term (current) drug therapy; Z88.0 Allergy status to penicillin; Z88.8 Allergy status to other drugs, medicaments and biological substances

== ENCOUNTER → 2019-12-12 | Outpatient (CLI) | payer OTHER | LOC: M.LAB 16:25 | PROVIDERS: ATTEND Internal Medicine | DX: E04.1 Nontoxic single thyroid nodule (principal); L65.9 Nonscarring hair loss, unspecified; E07.9 Disorder of thyroid, unspecified ==

== ENCOUNTER → 2019-12-14 | Outpatient (CLI) | payer OTHER ==
--- NOTE | 2019-12-29 08:20 | PAINCON ---
[address] [address] PAIN MANAGEMENT CONSULTATION Name: CAMRON ALMAGUERMilo Walter Room: [facility].#: [id number] Admission: 12/14/19 Attend Phys: Maddison Smith MD Discharge: Date of : 72 Report #: [id number] THIS REPORT FOR: //name// cc: Jamie Loza MD, Dean L. MD ~ THIS REPORT FOR: //name// CC: Jamie Smith DATE OF SERVICE: 12/14/2019 CHIEF COMPLAINT: "Having pain in my feet. The last injection was really helpful." HISTORY: The patient is a 49-year-old female who has been followed in the pain clinic because of chronic back pain. She also has been suffering from plantar fasciitis. As you may recall, she suffered and has recovered from COVID-19. Continues to have a history of plantar fasciitis. She underwent an injection in the left foot at the last visit. She noticed an improvement in her foot. She went on vacation. She is able to enjoy her vacation with left foot pain. She is still having pain in that foot and finds that the pain in the right foot is quite debilitating as well. Notes that the pain is worse with activity, walking, sitting, standing, climbing stairs, lifting and bending. She has used medications, which are helpful. Cold compresses are helpful, rest is helpful as well. She feels that her medications of hydrocodone, Lyrica and baclofen are helpful as well. She would like to have these medications renewed. She rates her pain overall as a 3/10. ALLERGIES: CEPHALEXIN CAUSES THRUSH, LEVOFLOXACIN CAUSES HIVES, PENICILLIN CAUSES ORAL THRUSH, PINDOLOL. CURRENT MEDICATIONS: Hydrocodone 7.5 mg 1 p.o. t.i.d., baclofen 10 mg p.r.n., Cymbalta 120 mg daily, estradiol 1 tablet, Corlanor 5 mg b.i.d., omeprazole 40 mg, Crestor 40 mg, trazodone 150 mg at bedtime, Ambien 12.5 mg. PAIN CLINIC ASSESSMENT AND PQRS: 1. The patient has pain in her right knee, which has been replaced. She is not being treated for rheumatoid arthritis. 2. The patient has suffered from plantar fasciitis in the left and right foot. 3. Height 5 feet 4 inches, weight 246 pounds, BMI is 42. 4. Vital Signs: Blood pressure 135/79, heart rate is 71, respiratory rate 16, room air saturation 95%, temperature 98.0. 5. Pain intensity, 3/10. 6. Fall history. The patient has not fallen in the last 3 months. 7. Blood thinner. The patient is not [place] [address] PAIN MANAGEMENT CONSULTATION Name: NIKKI ALMAGUER Room: [facility]#: [id number] Admission: 12/14/19 Attend Phys: Maddison Smith MD Discharge: Date of : 72 Report #: [id number] 8. Hypertension. The patient is not being treated for hypertension. 9. Opioids greater than 6 weeks. The patient received medication from the pain clinic. 10. Risk assessment tool, low for opioid use. 11. Functional assessment tool, reviewed. 12. Recreational drug use. The patient denies. 13. Tobacco. The patient denies. 14. Alcohol. The patient denies frequent use of alcoholic beverages. PHYSICAL EXAMINATION: GENERAL: The patient is a well-developed, well-nourished, somewhat obese white female. Appears her stated age. She is alert and oriented x 3. Her affect is appropriate. Speech is fluent. HEENT: Normocephalic, atraumatic. Extraocular eye muscles intact. Sclerae nonicteric. Mucous membranes are moist. The patient is wearing a mask. NECK: Without adenopathy or JVD. LUNGS: Generally clear. ABDOMEN: Nontender. MUSCULOSKELETAL: Upper extremity muscle strength judged to be 5/5 for the major muscle groups in the upper extremity. The patient without significant scoliosis, kyphosis or lordosis. The patient does complain of pain in her buttocks and pain that radiates down into the right sciatic outflow tract. The patient has some left foot pain as well as right foot pain, which is consistent with plantar fasciitis. IMPRESSION: 1. Lumbar radicular pain. 2. Bilateral plantar fasciitis. 3. Status post COVID-19 infection, recovery improving. 4. 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 5. Left and right plantar fasciitis. RECOMMENDATIONS: We discussed treatment options with the patient. Risks and benefits of an injection to the areas of the plantar fasciitis were discussed. Possible complications of the procedure, which could include infection, worsening of pain, no improvement in pain, nerve damage, tendon rupture were all discussed. The patient feels that the injection at the last visit was efficacious and would like to proceed with an injection to the left than the right. PROCEDURE NOTE: The patient was taken to the procedure area. She was then placed in the supine position. Her left and right foot were sterilely prepped with a chlorhexidine solution and allowed to dry. A cold spray of ethyl chloride was used to anesthetize the area. A 25-gauge needle was then advanced into the area 1 inch from the back of the heel and approximately 3/4 of an inch from the sole of the foot. Aspiration was negative. A solution of 3 mL of 0.5% [place] [address] PAIN MANAGEMENT CONSULTATION Name: NIKKI ALMAGUER Room: [facility]#: [id number] Admission: 12/14/19 Attend Phys: Maddison Smith MD Discharge: Date of : 72 Report #: [id number] bupivacaine and 40 mg triamcinolone was injected. The patient tolerated the procedure well. There were no complications. The right side was treated in a like fashion. This area was sprayed with an ethyl chloride solution. One inch from the back of the heel and approximately 3/4 of an inch from the sole was injected. Total of 3 mL of 0.5% bupivacaine with 40 mg triamcinolone was injected. The patient tolerated the procedure well. She remained in the pain clinic for an appropriate amount of time. She will follow up in the future as needed. We would like to thank you for letting us participate in her care. <ELECTRONICALLY SIGNED> By: Maddison Smith MD 12/29/19 0820 [id number]. Lazaurs Smith MD /PMT
== END | disposition home or self-care (01) ==
LOC: M.PC 03:57
PROVIDERS: ATTEND Anesthesiology Pain Medicine
DX: M72.2 Plantar fascial fibromatosis (principal); M54.16 Radiculopathy, lumbar region; Z20.828 Contact with and (suspected) exposure to other viral communicable diseases; Z98.890 Other specified postprocedural states; Z79.899 Other long term (current) drug therapy; Z88.8 Allergy status to other drugs, medicaments and biological substances; Z96.651 Presence of right artificial knee joint; Z88.0 Allergy status to penicillin; Z79.891 Long term (current) use of opiate analgesic

== ENCOUNTER → 2020-01-11 | Outpatient (CLI) | payer OTHER ==
--- NOTE | 2020-01-23 15:40 | PAINCON ---
[address] [address] PAIN MANAGEMENT CONSULTATION Name: NIKKI ALMAGUER Room: [facility].#: [id number] Admission: 01/11/20 Attend Phys: Maddison Smiht MD Discharge: Date of : 72 Report #: [id number] THIS REPORT FOR: //name// cc: Jamie Loza MD, Dean L. MD ~ THIS REPORT FOR: //name// CC: Jamie Smith DATE OF SERVICE: 01/11/2020 CHIEF COMPLAINT: "My feet feel better after the injection." HISTORY: The patient is a 49-year-old female who has been followed in the pain clinic. She suffers from plantar fasciitis. She underwent injections in the areas at the last visit. She has noticed that the pain has continued to improve. She rates her pain as a 4/10. She continues to work. She feels overall that her medications are working reasonably well and would like to continue their use. She does have some discomfort in her right knee. ALLERGIES: CEPHALEXIN CAUSES THRUSH, LEVOFLOXACIN CAUSES HIVES, PENICILLIN CAUSED ORAL THRUSH, PINDOLOL. CURRENT MEDICATIONS: Hydrocodone 7.5 mg 1 p.o. t.i.d., baclofen 10 mg p.r.n., Cymbalta 120 mg daily, estradiol 1 tablet, Corlanor 5 mg b.i.d., omeprazole 40 mg, Crestor 40 mg, trazodone 150 mg at bedtime, Ambien 12.5 mg. PAIN CLINIC ASSESSMENT AND PQRS: 1. The patient has some pain in her right knee. This has been replaced. She is not being treated for rheumatoid arthritis. 2. Height 5 feet 4 inches, weight 246 pounds, BMI 42. 3. Vital Signs: Blood pressure 148/98, heart rate 68, respiratory rate 16, room air saturation 93%, temperature 97.5. 4. Pain intensity 08/24. 5. Fall history: The patient has not fallen in the last 3 months. 6. Blood thinner. The patient is not on a blood thinning medication. 7. Hypertension. The patient is not being treated for hypertension. 8. Opioids greater than 6 weeks. The patient receives medication from the pain clinic. 9. Risk assessment tool, low for opioid use. 10. Functional assessment tool reviewed. 11. Recreational drug use. The patient denies. 12. Tobacco: The patient denies. 13. Alcohol. The patient [place] [address] PAIN MANAGEMENT CONSULTATION Name: NIKKI ALMAGUER Room: [facility]#: [id number] Admission: 01/11/20 Attend Phys: Maddison Smith MD Discharge: Date of : 72 Report #: [id number] PHYSICAL EXAMINATION: GENERAL: The patient is a well-developed, well-nourished, somewhat obese white female. She is alert and oriented x 3. Her affect is appropriate. Speech is fluent. HEENT: Normocephalic, atraumatic. Extraocular eye muscles intact. Sclerae nonicteric. Mucous membranes are moist. The patient is wearing a face cover. NECK: Without adenopathy or JVD. LUNGS: Generally clear. HEART: Regular rate. ABDOMEN: Nontender. MUSCULOSKELETAL: Upper extremity muscle strength judged to be 5/5 for the major muscle groups in the upper extremity. The patient without significant scoliosis, kyphosis or lordosis. The patient does complain of pain in her buttocks and pain radiates down the back in the sciatic outflow tract area. The patient also notes some improvement in her left and the right foot, which have been injected previously because of plantar fasciitis. IMPRESSION: 1. Lumbar radicular pain. 2. Bilateral plantar fasciitis. 3. Status post COVID-19 infection. 4. Recovered and improving. 5. Right knee pain. 6. Status post replacement with scar tissue in the area. 7. Left and right plantar fasciitis. RECOMMENDATIONS: We discussed treatment options with the patient. At this juncture, we will continue with her medications. A script for her medications have been renewed. She will receive hydrocodone 7.5 mg 1 p.o. t.i.d. She is aware that opioid medications can become less effective as time goes on. She has not shown any signs of addiction. The patient has also been provided with Zofran 8 mg p.r.n. for nausea. We would like to thank you for letting us participate in her care. We hope she continues to improve. <ELECTRONICALLY SIGNED> By: Maddison Smith MD 01/23/20 1540 [id number]. Lazarus Smith MD /sarah
== END ==
LOC: M.PC 07:27
PROVIDERS: ATTEND Anesthesiology Pain Medicine
DX: M54.16 Radiculopathy, lumbar region (principal); M25.561 Pain in right knee; M72.2 Plantar fascial fibromatosis; Z87.09 Personal history of other diseases of the respiratory system; Z88.8 Allergy status to other drugs, medicaments and biological substances; Z79.899 Other long term (current) drug therapy

== ENCOUNTER → 2020-02-08 | Outpatient (CLI) | payer OTHER ==
[~2020-02-08] MED LIST changes: +magic mouthwash SW&SWALLOW
--- NOTE | 2020-02-13 13:31 | PAINCON ---
[address] [address] PAIN MANAGEMENT CONSULTATION Name: NIKKI ALMAGUER Room: [facility].#: [id number] Admission: 02/08/20 Attend Phys: Maddison Smith MD Discharge: Date of : 72 Report #: [id number] THIS REPORT FOR: //name// cc: Jamie Loza MD, Dean L. MD ~ THIS REPORT FOR: //name// CC: Jamie Smith DATE OF SERVICE: 02/08/2020 CHIEF COMPLAINT: "I went to the [place] for 5 days." HISTORY: The patient is a 49-year-old female who has been followed in the pain clinic. As you recall, she does have plantar fasciitis. Injections in the past have been beneficial. She still has pain and discomfort, which she rates as a 6/10. She is noticing some increased pain and discomfort. When they left, she had clean up the camping area. This caused some increased pain and discomfort. Overall, she had a good time. She rates pain as 6/10. She feels that her medications are working well. She does not have any problems with confusion. Does have some low back discomfort. ALLERGIES: CEPHALEXIN CAUSES THRUSH, LEVOFLOXACIN CAUSES HIVES, PENICILLIN CAUSES THRUSH, PINDOLOL. CURRENT MEDICATIONS: Hydrocodone 7.5 mg 1 p.o. t.i.d., baclofen 10 mg, Cymbalta 120 mg daily, estradiol 1 tablet, Corlanor 5 mg b.i.d., omeprazole 40 mg, Crestor 40 mg, trazodone 150 mg at bedtime, Ambien 12.5 mg. PAIN CLINIC ASSESSMENT AND PQRS: 1. The patient has some pain and discomfort in her right knee. It has been replaced and she did have some scar tissue removed a few years ago. Otherwise, she is working reasonably well. 2. Rheumatoid arthritis. The patient is not being treated for rheumatoid arthritis. 3. Height 5 feet 4 inches, weight 251 pounds, BMI is 43. 4. Vital Signs: Blood pressure 150/83, heart rate 67, respiratory rate 16, room air saturation 93%, temperature 97.9. 5. Pain intensity, 10/24. 6. Fall history. The patient has not fallen in the last 3 months. 7. Blood thinner. The patient is not on a blood thinning medication. 8. Hypertension. The patient is not being treated for hypertension. 9. Opioids greater than 6 weeks. The patient receives medication from the pain clinic. 10. Risk assessment tool, [place] [address] PAIN MANAGEMENT CONSULTATION Name: NIKKI ALMAGUER Room: [facility]#: [id number] Admission: 02/08/20 Attend Phys: Maddison Smith MD Discharge: Date of : 72 Report #: [id number] 11. Functional assessment tool, reviewed. 12. Recreational drug use. The patient denies. 13. Tobacco. The patient denies. 14. Alcohol. The patient denies use of alcoholic beverages. PHYSICAL EXAMINATION: GENERAL: The patient is a well-developed, well-nourished, white female. Somewhat obese. She is alert and oriented x 3. Her affect is appropriate. Speech is fluent. HEENT: Normocephalic, atraumatic. Extraocular eye muscles intact. Sclerae nonicteric. Mucous membranes are moist. The patient is wearing a facial covering. NECK: Without adenopathy. LUNGS: Clear to auscultation. HEART: Regular rate. ABDOMEN: Nontender, protuberant. MUSCULOSKELETAL: Upper extremity muscle strength judged to be 5/5 for the major muscle groups in the upper extremity. Lower extremity muscle strength judged to be 5/5 for the major muscle groups. The patient has less pain and discomfort in the feet associated with plantar fasciitis since the injection. The patient without significant scoliosis, kyphosis or lordosis. IMPRESSION: 1. Lumbar radicular pain history. 2. Status post COVID-19 infection. 3. Right knee pain. 4. Left and right plantar fasciitis. This improved after injection. RECOMMENDATIONS: We discussed treatment options with the patient. At this juncture, we will continue with her medications. She feels that the medications are helpful. 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 She is able to think clearly. She is aware that opioid medications can become less effective as time goes on because of development of tolerance. We have discussed the problems with opioid medications, some patients have developed addictions. They have subsequently overdosed and . She feels her medications are helpful. Keeps her medications in a guarded area. A script for hydrocodone 7.5 mg 1 p.o. t.i.d. has been written. The patient also has been given a script for ondansetron 8 mg p.r.n. for nausea. We would like to thank you for letting us participate in her care. <ELECTRONICALLY SIGNED> By: Maddison Smith MD 02/13/20 1331 [id number]. Lazarus Smith MD /TEJA
== END ==
LOC: M.PC 08:10
PROVIDERS: ATTEND Anesthesiology Pain Medicine
DX: M54.16 Radiculopathy, lumbar region (principal); M25.561 Pain in right knee; I10 Essential (primary) hypertension; Z79.899 Other long term (current) drug therapy

== ENCOUNTER 2020-02-29 21:24 | Emergency (ER) | payer OTHER ==
[~2020-02-29] VITALS: Ht 162.6 cm; Wt 111.1 kg
[~2020-02-29 21:24] MED LIST changes: -magic mouthwash SW&SWALLOW
[2020-02-29 22:26] LABS: INFLUENZA A ANTIGEN Negative (Negative); INFLUENZA B ANTIGEN Negative (Negative)
[2020-02-29 22:53] LABS: URINE BILIRUBIN NEGATIVE (Negative); URINE BLOOD NEGATIVE (Negative); URINE CLARITY CLEAR; URINE COLOR YELLOW; URINE GLUCOSE-RANDOM NEGATIVE (Negative); URINE KETONES NEGATIVE (Negative); URINE LEUKOCYTES-REFLEX NEGATIVE (Negative); URINE NITRITE-REFLEX NEGATIVE (Negative); URINE PROTEIN NEGATIVE (Negative); URINE SPECIFIC GRAVITY 1.015 (1.005-1.030); URINE UROBILINOGEN 0.2 E.U./dl (0.2-1.0)
[2020-02-29 23:28] LABS: ABSOLUTE BASOPHILS 0.1 thou/uL (0.0-0.2); ABSOLUTE EOSINOPHILS 0.1 thou/uL (0.0-0.7); ABSOLUTE LYMPHOCYTES 2.3 thou/uL (0.8-5.3); ABSOLUTE MONOCYTES 0.6 thou/uL (0.0-1.2); ABSOLUTE NEUTROPHILS 7.7 thou/uL (1.6-8.1); EOSINOPHILS 0.9 %; HEMATOCRIT 38.1 % (37.0-47.0); HEMOGLOBIN 12.5 gm/dL (12.0-15.0); LYMPHOCYTES 21.1 %; MCH 27.2 pg (26.0-34.0); MCHC 32.8 g/dL (28.0-37.0); MCV 82.8 fL (80.0-100.0); MONOCYTES 5.5 %; MPV 7.3 fl. (7.2-11.1); NUCLEATED RBCS 0 /100WBC; PLATELET COUNT* 236 thou/uL (150-400); POLYS 71.5 %; RBC 4.61 mil/uL (4.20-5.00); RDW-CV 15.5 % (10.5-14.5); WBC 10.8 thou/uL (4.0-11.0)
[2020-02-29 23:38] LABS: CALCIUM 7.9 mg/dL (8.5-10.1); CREATININE 0.9 mg/dL (0.6-1.3); POTASSIUM 3.9 mmol/L (3.5-5.1)
[2020-02-29 23:43] LABS: ALBUMIN 2.6 g/dL (3.4-5.0); TOTAL BILIRUBIN 0.3 mg/dL (<0.1-1.0); TOTAL PROTEIN 6.4 g/dL (6.4-8.2)
[2020-03-01 00:20] VITALS: BP 123/64
[2020-03-01] MEDS ORDERED: magic mouthwash SW&SWALLOW (00:25)
--- NOTE | 2020-03-01 14:11 | EKG ---
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
== END 2020-03-01 00:23 | disposition home or self-care (01) ==
LOC: M.ERS 21:24
PROVIDERS: Personal Emergency Response Attendant
DX: B34.9 Viral infection, unspecified (principal); Z20.828 Contact with and (suspected) exposure to other viral communicable diseases; E78.00 Pure hypercholesterolemia, unspecified; M79.7 Fibromyalgia; K21.9 Gastro-esophageal reflux disease without esophagitis; E66.9 Obesity, unspecified; Z90.710 Acquired absence of both cervix and uterus; Z79.899 Other long term (current) drug therapy; Z88.1 Allergy status to other antibiotic agents; Z88.0 Allergy status to penicillin

== ENCOUNTER → 2020-03-07 | Outpatient (CLI) | payer OTHER ==
[~2020-03-07] MED LIST changes: +magic mouthwash SW&SWALLOW
--- NOTE | 2020-03-08 08:24 | PAINCON ---
[address] [address] PAIN MANAGEMENT CONSULTATION Name: NIKKI ALMAGUER Room: [facility].#: [id number] Admission: 03/07/20 Attend Phys: Maddison Smith MD Discharge: Date of : 72 Report #: [id number] THIS REPORT FOR: //name// cc: Jamie Loza MD, Dean L. MD ~ CC: Jamie Smith DATE OF SERVICE: 03/07/2020 CHIEF COMPLAINT: Low back pain. The pain in my feet is better. HISTORY: The patient is a 49-year-old female who has been followed in the pain clinic because of chronic pain. She has undergone treatment for chronic back pain. She feels that her current medications of hydrocodone is helpful. She has had injections in her feet for plantar fasciitis. Overall, she feels that has improved. She would like to consider additional injections, possibly in the future. She will consider injections in the future when she returns. At this juncture, she feels her medications of hydrocodone continue to be helpful. She is using Cymbalta. Feels that baclofen is helpful and continues with Lyrica. She has had no complications from use of her medication. She is aware that opioid medications can become less effective as time goes on. She rates her pain as a 4/10. ALLERGIES: CEPHALEXIN CAUSES THRUSH, LEVOFLOXACIN CAUSES HIVES, PENICILLIN CAUSES THRUSH, PINDOLOL. CURRENT MEDICATIONS: Hydrocodone 7.5 mg 1 p.o. t.i.d., baclofen 10 mg, Cymbalta 120 mg daily, estradiol 1 tablet, Corlanor 5 mg b.i.d., omeprazole 40 mg, Crestor 40 mg, trazodone 150 mg at bedtime, Ambien 12.5 mg. PAIN CLINIC ASSESSMENT AND PQRS: 1. The patient has some pain and discomfort in her right knee. She had it replaced. She has had some scar tissue removed a few years ago. Otherwise, she is walking reasonably well. 2. Rheumatoid arthritis. The patient is not being treated for rheumatoid arthritis. 3. Height 5 feet 4 inches, weight 247 pounds, BMI 42. 4. Vital Signs: Blood pressure 133/76, heart rate 83, respiratory rate 16, room air saturation is 95%, temperature 97.5. 5. Pain intensity 4/10. 6. Fall history: The patient has not fallen in the last 3 months. 7. Blood thinner. The patient is not on a blood thinning medication. 8. Hypertension. The patient is not being treated for hypertension. 9. Opioids greater than 6 weeks. The patient receives medication from [place] [address] PAIN MANAGEMENT CONSULTATION Name: CAMRON ALMAGUERN Saba Room: [facility]#: [id number] Admission: 03/07/20 Attend Phys: Maddison Smith MD Discharge: Date of : 72 Report #: [id number] 10. Risk assessment tool, low for opioid use. 11. Functional assessment tool reviewed. 12. Recreational drug use: The patient denies. 13. Tobacco: The patient denies. 14. Alcohol. The patient denies use of alcoholic beverages. PHYSICAL EXAMINATION: GENERAL: The patient is a well-developed, well-nourished white female. She is somewhat obese. She is alert and oriented x 3. Her affect is appropriate. Speech is fluent. The patient is wearing a facial covering. HEENT: Normocephalic, atraumatic. Extraocular eye muscles intact. NECK: . Good range of motion. LUNGS: Clear to auscultation. HEART: Regular rate. ABDOMEN: Nontender. EXTREMITIES: Upper extremity muscle strength judged to be 5/5 for the major muscle groups in the upper extremity. Lower extremity muscle strength judged to be 5/5 for the major muscle groups. The patient has pain and discomfort in her feet with increased tenderness near the heel of her feet secondary to plantar fasciitis. The patient without significant scoliosis, kyphosis or lordosis. IMPRESSION: 1. Lumbar radicular history. 2. Status post COVID-19 infection. 3. Right heel pain. 4. Left and right plantar fasciitis, improved after the injection. RECOMMENDATIONS: We discussed treatment options with the patient. At this juncture, we will continue with her medications. A script for hydrocodone has been rewritten. The patient is aware that these medications can become less effective as time goes on. She is aware that certain patients have become addicted to these medications. She has not shown any signs of addiction. She has taken the medication as dispensed. She is able to think clearly. This does not have complete her judgment when she is dealing with patients. She will return in the future with possibility of an injection in the left or right heel because of plantar fasciitis in the future. <ELECTRONICALLY SIGNED> By: Maddison Smith MD 03/08/20 0824 [id number]. Lazarus Smith MD /PMT
== END ==
LOC: M.PC 07:57
PROVIDERS: ATTEND Anesthesiology Pain Medicine
DX: M54.5 Low back pain (principal); M25.561 Pain in right knee; Z87.39 Personal history of other diseases of the musculoskeletal system and connective tissue; Z87.09 Personal history of other diseases of the respiratory system; Z88.8 Allergy status to other drugs, medicaments and biological substances; Z79.899 Other long term (current) drug therapy

== ENCOUNTER → 2020-04-04 | Outpatient (CLI) | payer OTHER | LOC: M.PC 07:33 | PROVIDERS: ATTEND Anesthesiology Pain Medicine | DX: U07.1 COVID-19 (principal) ==

== ENCOUNTER → 2020-05-02 | Outpatient (CLI) | payer OTHER | END | disposition home or self-care (01) | LOC: M.PC 08:03 | PROVIDERS: ATTEND Anesthesiology Pain Medicine | DX: M72.2 Plantar fascial fibromatosis (principal); M54.16 Radiculopathy, lumbar region; G89.29 Other chronic pain; E78.00 Pure hypercholesterolemia, unspecified; F32.9 Major depressive disorder, single episode, unspecified; E66.9 Obesity, unspecified; M79.7 Fibromyalgia; Z98.890 Other specified postprocedural states; Z79.899 Other long term (current) drug therapy; Z90.710 Acquired absence of both cervix and uterus; Z98.84 Bariatric surgery status; Z68.41 Body mass index [BMI] 40.0-44.9, adult ==

== ENCOUNTER → 2020-06-17 | Outpatient (CLI) | payer OTHER | LOC: M.RAD 06-06 07:00 → M.ULTRA 06-06 07:30 → M.RAD 06-12 07:00 | PROVIDERS: ATTEND Internal Medicine | DX: Z12.31 Encounter for screening mammogram for malignant neoplasm of breast (principal); L65.9 Nonscarring hair loss, unspecified; E07.9 Disorder of thyroid, unspecified; E04.2 Nontoxic multinodular goiter ==

== ENCOUNTER → 2020-07-04 | Outpatient (CLI) | payer OTHER | END | disposition home or self-care (01) | LOC: M.PC 08:00 | PROVIDERS: ATTEND Anesthesiology Pain Medicine | DX: M72.2 Plantar fascial fibromatosis (principal); M77.32 Calcaneal spur, left foot; G89.29 Other chronic pain; E78.00 Pure hypercholesterolemia, unspecified; F32.9 Major depressive disorder, single episode, unspecified; K21.9 Gastro-esophageal reflux disease without esophagitis; E66.9 Obesity, unspecified; M79.7 Fibromyalgia; Z98.890 Other specified postprocedural states; Z79.899 Other long term (current) drug therapy; Z90.710 Acquired absence of both cervix and uterus; Z20.822 Contact with and (suspected) exposure to COVID-19; Z96.651 Presence of right artificial knee joint; Z98.84 Bariatric surgery status; Z68.41 Body mass index [BMI] 40.0-44.9, adult ==

== ENCOUNTER → 2020-08-01 | Outpatient (CLI) | payer OTHER | LOC: M.PC 08:00 | PROVIDERS: ATTEND Anesthesiology Pain Medicine | DX: M72.2 Plantar fascial fibromatosis (principal); M54.16 Radiculopathy, lumbar region; M77.8 Other enthesopathies, not elsewhere classified; Z86.16 Personal history of COVID-19 ==

== ENCOUNTER → 2020-08-20 | Outpatient (CLI) | payer OTHER | END | disposition home or self-care (01) | LOC: M.PC 11:10 | PROVIDERS: ATTEND Anesthesiology Pain Medicine | DX: M72.2 Plantar fascial fibromatosis (principal); M54.16 Radiculopathy, lumbar region; M77.32 Calcaneal spur, left foot; E78.00 Pure hypercholesterolemia, unspecified; F32.9 Major depressive disorder, single episode, unspecified; K21.9 Gastro-esophageal reflux disease without esophagitis; E66.9 Obesity, unspecified; M79.7 Fibromyalgia; Z98.890 Other specified postprocedural states; Z96.651 Presence of right artificial knee joint; Z79.899 Other long term (current) drug therapy; Z90.710 Acquired absence of both cervix and uterus; Z68.41 Body mass index [BMI] 40.0-44.9, adult ==

== ENCOUNTER → 2020-09-24 | Outpatient (CLI) | payer OTHER ==
[2020-09-24 09:54] LABS: CALCIUM 8.4 mg/dL (8.5-10.1); CREATININE 0.8 mg/dL (0.6-1.3); POTASSIUM 4.1 mmol/L (3.5-5.1)
== END | disposition home or self-care (01) ==
LOC: M.PC 08:00
PROVIDERS: ATTEND Anesthesiology Pain Medicine
DX: M72.2 Plantar fascial fibromatosis (principal); M77.32 Calcaneal spur, left foot; M54.16 Radiculopathy, lumbar region; G89.29 Other chronic pain; E78.00 Pure hypercholesterolemia, unspecified; M79.7 Fibromyalgia; K21.9 Gastro-esophageal reflux disease without esophagitis; F32.9 Major depressive disorder, single episode, unspecified; Z98.890 Other specified postprocedural states; Z79.899 Other long term (current) drug therapy; Z20.822 Contact with and (suspected) exposure to COVID-19; Z90.710 Acquired absence of both cervix and uterus; Z98.84 Bariatric surgery status; Z96.651 Presence of right artificial knee joint; Z88.0 Allergy status to penicillin; Z88.8 Allergy status to other drugs, medicaments and biological substances

== ENCOUNTER → 2020-10-22 | Outpatient (CLI) | payer OTHER ==
[2020-10-22 09:28] LABS: ABSOLUTE BASOPHILS 0.1 thou/uL (0.0-0.2); ABSOLUTE EOSINOPHILS 0.1 thou/uL (0.0-0.7); ABSOLUTE LYMPHOCYTES 2.5 thou/uL (0.8-5.3); ABSOLUTE MONOCYTES 0.4 thou/uL (0.0-1.2); ABSOLUTE NEUTROPHILS 5.8 thou/uL (1.6-8.1); BASOPHILS 0.6 %; EOSINOPHILS 1.6 %; HEMATOCRIT 37.8 % (37.0-47.0); LYMPHOCYTES 27.8 %; MCH 24.3 pg (26.0-34.0); MCHC 31.7 g/dL (28.0-37.0); MCV 76.7 fL (80.0-100.0); MONOCYTES 4.9 %; MPV 7.6 fl. (7.2-11.1); NUCLEATED RBCS 0 /100WBC; PLATELET COUNT* 372 thou/uL (150-400); POLYS 65.1 %; RBC 4.92 mil/uL (4.20-5.00); RDW-CV 16.9 % (10.5-14.5); WBC 8.9 thou/uL (4.0-11.0)
== END ==
LOC: M.LAB 07:53 → M.PC 07:53
PROVIDERS: ATTEND Anesthesiology Pain Medicine
DX: R53.82 Chronic fatigue, unspecified (principal); D64.9 Anemia, unspecified; E55.9 Vitamin D deficiency, unspecified

== ENCOUNTER → 2020-11-19 | Outpatient (CLI) | payer OTHER | END | disposition home or self-care (01) | LOC: M.PC 08:18 | PROVIDERS: ATTEND Anesthesiology Pain Medicine | DX: M72.2 Plantar fascial fibromatosis (principal); M77.32 Calcaneal spur, left foot; M54.16 Radiculopathy, lumbar region; G89.29 Other chronic pain; E78.00 Pure hypercholesterolemia, unspecified; M79.7 Fibromyalgia; F32.9 Major depressive disorder, single episode, unspecified; K21.9 Gastro-esophageal reflux disease without esophagitis; Z98.890 Other specified postprocedural states; Z79.899 Other long term (current) drug therapy; Z86.16 Personal history of COVID-19; Z90.49 Acquired absence of other specified parts of digestive tract; Z90.710 Acquired absence of both cervix and uterus; Z96.651 Presence of right artificial knee joint; Z98.84 Bariatric surgery status; Z88.0 Allergy status to penicillin; Z88.8 Allergy status to other drugs, medicaments and biological substances ==

== ENCOUNTER → 2020-12-17 | Outpatient (CLI) | payer OTHER | LOC: M.PC 08:13 | PROVIDERS: ATTEND Anesthesiology Pain Medicine | DX: M72.2 Plantar fascial fibromatosis (principal); M54.16 Radiculopathy, lumbar region; M77.9 Enthesopathy, unspecified; Z86.16 Personal history of COVID-19; Z79.899 Other long term (current) drug therapy; Z79.891 Long term (current) use of opiate analgesic ==

== ENCOUNTER → 2021-01-30 | Outpatient (CLI) | payer OTHER | END | disposition home or self-care (01) | LOC: M.PC 01-14 08:00 | PROVIDERS: ATTEND Anesthesiology Pain Medicine | DX: M72.2 Plantar fascial fibromatosis (principal); M25.572 Pain in left ankle and joints of left foot; M54.16 Radiculopathy, lumbar region; G89.29 Other chronic pain; E78.00 Pure hypercholesterolemia, unspecified; F32.9 Major depressive disorder, single episode, unspecified; M79.7 Fibromyalgia; K21.9 Gastro-esophageal reflux disease without esophagitis; Z98.890 Other specified postprocedural states; Z79.899 Other long term (current) drug therapy; Z20.822 Contact with and (suspected) exposure to COVID-19; Z90.710 Acquired absence of both cervix and uterus; Z96.651 Presence of right artificial knee joint; Z88.0 Allergy status to penicillin; Z88.8 Allergy status to other drugs, medicaments and biological substances; Z98.84 Bariatric surgery status ==

== ENCOUNTER 2021-03-25 19:27 | Observation (INO) | payer OTHER ==
[~2021-03-25] VITALS: Ht 162.6 cm; Wt 106.6 kg
[2021-03-25 19:32] VITALS: BP 148/91
[2021-03-25 20:17] LABS: ABSOLUTE BASOPHILS 0.1 thou/uL (0.0-0.2); ABSOLUTE EOSINOPHILS 0.2 thou/uL (0.0-0.7); ABSOLUTE LYMPHOCYTES 1.9 thou/uL (0.8-5.3); ABSOLUTE MONOCYTES 0.4 thou/uL (0.0-1.2); ABSOLUTE NEUTROPHILS 5.2 thou/uL (1.6-8.1); BASOPHILS 0.8 %; EOSINOPHILS 2.3 %; HEMATOCRIT 36.2 % (37.0-47.0); HEMOGLOBIN 11.8 gm/dL (12.0-15.0); LYMPHOCYTES 24.1 %; MCH 24.2 pg (26.0-34.0); MCHC 32.5 g/dL (28.0-37.0); MCV 74.4 fL (80.0-100.0); MONOCYTES 5.7 %; MPV 7.5 fl. (7.2-11.1); NUCLEATED RBCS 0 /100WBC; PLATELET COUNT* 349 thou/uL (150-400); POLYS 67.1 %; RBC 4.86 mil/uL (4.20-5.00); RDW-CV 17.1 % (10.5-14.5); WBC 7.8 thou/uL (4.0-11.0)
[2021-03-25 20:28] LABS: CALCIUM 8.5 mg/dL (8.5-10.1); CREATININE 0.7 mg/dL (0.6-1.3); POTASSIUM 3.7 mmol/L (3.5-5.1)
[2021-03-25] MEDS ORDERED: XANAX1 MG PO (20:32)
[2021-03-25 20:38] LABS: TOTAL BILIRUBIN 0.3 mg/dL (<0.1-1.0); TOTAL PROTEIN 7.2 g/dL (6.4-8.2)
[2021-03-25 21:46] LABS: URINE BILIRUBIN NEGATIVE (Negative); URINE BLOOD NEGATIVE (Negative); URINE CLARITY CLEAR; URINE COLOR YELLOW; URINE GLUCOSE-RANDOM NEGATIVE (Negative); URINE KETONES NEGATIVE (Negative); URINE LEUKOCYTES-REFLEX NEGATIVE (Negative); URINE NITRITE-REFLEX NEGATIVE (Negative); URINE PROTEIN NEGATIVE (Negative); URINE SPECIFIC GRAVITY >= 1.030 (1.005-1.030); URINE UROBILINOGEN 0.2 E.U./dl (0.2-1.0)
--- NOTE | 2021-03-26 01:54 | NUR ---
PT TOOK 40MG OMEPRAZOLE PO WITH A SIP OF WATER, PER DR PRINGLE
[2021-03-26 03:15] VITALS: BP 125/98
[2021-03-26 07:15] VITALS: BP 129/60
--- NOTE | 2021-03-26 08:50 | EKG ---
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: MICHELET : 1970 Requested By: Laurence Stevens Order Number: [id number] MD: Ubaldo Richardson Measurements Intervals [place] Rate: 72 P: 61 MO: 152 QRS: 5 QRSD: 106 T: 33 QT: 404 QTc: 443 Interpretive Statements Sinus rhythm Compared to ECG 02/29/2020 21:46:31 Sinus tachycardia no longer present Electronically Signed On 03-26-2021 8:50:13 [employer]ING MACHINE OPERATOR by Ubaldo Richardson [email or web address] <ELECTRONICALLY SIGNED> By: Ubaldo Richardson MD, [facility] 03/26/21 0850 38 38 Ubaldo Richardson MD, [facility] /EPI
[2021-03-26 11:15] VITALS: BP 126/72
[2021-03-26 13:10] VITALS: BP 126/72
[2021-03-26 13:31] VITALS: BP 124/68
--- NOTE | 2021-03-26 17:09 | CON ---
[address] [address] CONSULTATION Name: NIKKI ALMAGUER Room: [address] Juwan Salas#: [id number] Admission: 03/25/21 Attend Phys: Ruy Sahni MD Discharge: 03/26/21 Date of : 72 Report #: [id number] THIS REPORT FOR: cc: Jamie Loza MD, Dean L. MD Blick, David R. MD FAC ~ cc: Jamie Loza MD DATE OF CONSULTATION: 03/26/2021 CARDIOLOGY CONSULTATION HISTORY OF PRESENT ILLNESS: The patient is a 50-year-old single white female who I was asked to see in the Emergency Room today after she complained of chest pain. The patient has an extensive and complicated past medical history. She primarily is cared for by my partner, Dr. Jose Luis Garcia. She has a history of obesity and had previous gastrectomy for obesity at [facility]. She has a long history of chest pain. She apparently had a heart catheterization in [facility] years ago that showed no significant coronary artery disease. They apparently attempted this from the radial artery, but were unsuccessful and had it performed from the femoral artery. Prior to her gastric bypass surgery, she had another heart catheterization at and again was found to have no significant coronary artery disease. She has a history of atrial tachycardia and has had previous radiofrequency ablation at . She continued to complain of palpitations and my partner, Dr. Garcia started her on Corlanor in the past. She no longer has the tachycardia. She has a history of hypertension and was on chlorthalidone in the past, but apparently developed low blood pressure and had a syncopal spell and was taken off chlorthalidone. She has had no further syncopal spells. She is not very active at this time. She was doing well until the past few days, she has been having intermittent heaviness in her chest, goes into her back. It is not related to exertion or meals. It can make her short of breath, diaphoretic, nauseated. It last several minutes and resolves. After an episode last night, she drove herself to the Emergency Room, was admitted for further evaluation and treatment. She denies any fever, cough, bleeding. She denied the pain being related to food. She has had no trauma to her chest. She denied a rash. She denies any recent dyspnea on exertion or syncope. She did receive the vaccine. She did not have COVID-19. PAST MEDICAL HISTORY: Otherwise, significant for hysterectomy, knee surgery. She had a temporal artery biopsy in the past that was negative for arteritis. She has tonsillectomy. She has no history of diabetes. She has hyperlipidemia. She has a history of depression. CURRENT MEDICATIONS: Includes Xanax, baclofen, Corlanor, estradiol, Prozac, [place] [address] CONSULTATION Name: NIKKI ALMAGUER Room: [place] [address] SHERIE Salas#: [id number] Admission: 03/25/21 Attend Phys: Ruy Sahni MD Discharge: 03/26/21 Date of : 72 Report #: [id number] Claribel Christianson Ambien. She goes to the pain clinic for plantar fasciitis. ALLERGIES: SHE HAS A PREVIOUS INTOLERANCE TO CEPHALEXIN, LEVOFLOXACIN, PENICILLIN. SHE COULD NOT TOLERATE PINDOLOL IN THE PAST. FAMILY HISTORY: Her father of heart attack when he was 54. SOCIAL HISTORY: She is single, lives with her mother in [place], [place]. 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 No smoking. No alcohol abuse. No illicit drug use. PHYSICAL EXAMINATION: GENERAL: Reveals a middle-aged female, appeared in no acute distress. VITAL SIGNS: She had a blood pressure 120/80, pulse is 60. She was afebrile. HEENT: She was anicteric. Conjunctivae pink. Mucous membranes are moist. NECK: Veins not appear distended. No carotid bruits. Neck is supple. CHEST: Clear to auscultation. HEART: Regular rate and rhythm. No murmur or rub. ABDOMEN: Obese. EXTREMITIES: Had no pitting edema. Dorsalis pedis pulse 1+ bilaterally. SKIN: Cool and dry. NEUROLOGIC: Nonfocal. DIAGNOSTIC STUDIES: Her ECG last night in the Emergency Room showed a sinus rhythm. There were no significant ST or T-wave change noted. The patient had an echocardiogram performed in August of 2019 here at [place] that showed ejection fraction of 60%. She actually had a nuclear stress test in May of 2019 using Lexiscan that showed ejection fraction 75% with normal perfusion showing no evidence of ischemia. In the Emergency Room last night, her workup included a chest x-ray that showed mild cardiomegaly, otherwise clear lung chilel. LABORATORY DATA: Creatinine 0.7. Her high sensitivity troponin was 15. BNP was 59. Her white blood cell count 7.8, hemoglobin 11.8. Her COVID antigen stat test was negative. Urinalysis last night was negative for protein, negative for leukocytes. IMPRESSION AND RECOMMENDATIONS: 1. Chest pain. Atypical for angina. No evidence of myocardial infarction. No ECG changes. The patient has had two previous cardiac catheterizations showed no significant coronary artery disease. She had a Lexiscan Cardiolite here at [facility] year and a half ago that showed no ischemia. I suspect her chest pain is noncardiac. Recommend no further cardiac evaluation. 2. Chronic pain syndrome. The patient [place] [address] CONSULTATION Name: NIKKI ALMAGUER Room: [address] Juwan Salas#: [id number] Admission: 03/25/21 Attend Phys: Ruy Sahni MD Discharge: 03/26/21 Date of : 72 Report #: [id number] 3. History of atrial arrhythmias. Previous ablation. Currently, symptoms are controlled on Corlanor. 4. History of obesity. Previous gastric bypass. 5. History of depression. The patient has seen Psychiatry in the past. 6. History of sleep apnea. The patient has used CPAP in the past. 7. History of Yoon's palsy. 8. Hyperlipidemia. The patient is on a statin drug. 9. History of hypertension. The patient was taken off chlorthalidone when she developed low blood pressure and had a syncopal spell. <ELECTRONICALLY SIGNED> By: Ubaldo Richardson MD, [facility] 03/26/21 1709 0823 [id number] Delfino Richardson MD, FACC /nt
== END 2021-03-26 13:40 | disposition home or self-care (01) ==
LOC: M.ERS 19:27 → M.TBA-ER 23:00
PROVIDERS: Emergency Medicine; ADMIT Internal Medicine; ATTEND Internal Medicine
DX: R07.89 Other chest pain (principal); E78.00 Pure hypercholesterolemia, unspecified; Z20.822 Contact with and (suspected) exposure to COVID-19; F32.9 Major depressive disorder, single episode, unspecified; M79.7 Fibromyalgia; G89.29 Other chronic pain; K21.9 Gastro-esophageal reflux disease without esophagitis; E66.9 Obesity, unspecified; Z79.899 Other long term (current) drug therapy; Z88.0 Allergy status to penicillin; Z68.41 Body mass index [BMI] 40.0-44.9, adult; Z90.710 Acquired absence of both cervix and uterus

== ENCOUNTER → 2021-04-08 | Outpatient (CLI) | payer OTHER ==
[~2021-04-08] MED LIST changes: +XANAX1 MG PO
== END ==
LOC: M.PC 07:45
PROVIDERS: ATTEND Anesthesiology Pain Medicine
DX: M72.2 Plantar fascial fibromatosis (principal); B99.9 Unspecified infectious disease; U09.9 Post COVID-19 condition, unspecified; M54.16 Radiculopathy, lumbar region; M77.52 Other enthesopathy of left foot and ankle; Z79.899 Other long term (current) drug therapy; Z88.0 Allergy status to penicillin; Z88.1 Allergy status to other antibiotic agents

== ENCOUNTER → 2021-06-03 | Outpatient (CLI) | payer OTHER | LOC: M.PC 07:59 | PROVIDERS: ATTEND Anesthesiology Pain Medicine | DX: M54.16 Radiculopathy, lumbar region (principal); M77.32 Calcaneal spur, left foot; M72.2 Plantar fascial fibromatosis; Z86.16 Personal history of COVID-19; Z88.0 Allergy status to penicillin; Z88.8 Allergy status to other drugs, medicaments and biological substances; Z79.899 Other long term (current) drug therapy ==

== ENCOUNTER → 2021-06-10 | Outpatient (CLI) | payer OTHER ==
[~2021-06-10] MED LIST changes: +FOLIC ACID1 MG PO; +IRON325 M1 PO; +VITAMIN B-125000 MCG SUBLING; +VITAMIN D350 MC3 PO
== END | disposition home or self-care (01) ==
LOC: M.PC 08:07
PROVIDERS: ATTEND Anesthesiology Pain Medicine
DX: M72.2 Plantar fascial fibromatosis (principal); E78.00 Pure hypercholesterolemia, unspecified; F32.9 Major depressive disorder, single episode, unspecified; M79.7 Fibromyalgia; K21.9 Gastro-esophageal reflux disease without esophagitis; Z98.890 Other specified postprocedural states; Z79.899 Other long term (current) drug therapy; Z90.710 Acquired absence of both cervix and uterus; Z98.84 Bariatric surgery status; Z88.0 Allergy status to penicillin; Z88.8 Allergy status to other drugs, medicaments and biological substances; Z20.822 Contact with and (suspected) exposure to COVID-19